=== PATIENT | male | born 1975 | race Caucasian/White ===

== ENCOUNTER → 2017-06-18 | Outpatient (CLI) | payer MEDICARE, OTHER ==
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
== END | disposition home or self-care (01) ==
LOC: RADCTMAIN 10:13
PROVIDERS: ATTEND Urology
DX: R31.0 Gross hematuria (principal)
CPT/HCPCS: 74178; 74400; Q9967

== ENCOUNTER 2017-09-15 06:47 | Emergency (ER) | payer MEDICARE, OTHER ==
[2017-09-15 06:58] VITALS: BP 131/83
[2017-09-15 07:42] LABS: Appearance,Urine Clear (Clear); Bilirubin,Urine Negative (Negative); Blood,Urine Negative (Negative); Color,Urine Yellow; Glucose,Urine (UA) Negative (Negative); Ketones,Urine Negative (Negative); Leukocyte Esterase,Urine Negative (Negative); Nitrite,Urine Negative (Negative); PH, Urine 5.5 (5.0-8.0); Protein,Urine Negative (Negative); Specific Gravity,Urine 1.021 (1.001-1.035)
[2017-09-15] MEDS ORDERED: cefTRIAXone 250 MG VIAL IM STA (07:47)
[2017-09-15] MEDS ORDERED: AZITHROMYCIN 500 MG TAB PO STA (07:47)
--- NOTE | 2017-09-15 07:48 | ED ---
General Adult HPI - General Chief complaint: Urogenital Stated complaint: Possible STD Time Seen by Provider: 09/15/17 07:16 Source: patient, RN notes reviewed, old records reviewed Mode of arrival: wheelchair Limitations: no limitations - History of Present Illness Initial comments: 42-year-old male presenting with months to years of urethral discharge. He just recently found out that he was in contact with chlamydia. He believes he has been carrying this for years. States the discharge is white. Denies any penile lesions. He has had some testicular pain which is unchanged and has been evaluated by his primary care physician. Denies any other complaints. No rash. No fever or chills. No abdominal pain or pain with defecation. - Related Data Home Medications Medication Instructions Recorded Confirmed busPIRone HCl [Buspar] 10 mg PO BID 09/15/17 09/15/17 Allergies Allergy/AdvReac Type Severity Reaction Status Date / Time coconut Allergy Rash/Hives Verified 09/15/17 08:01 Review of Systems ROS Statement: Those systems with pertinent positive or pertinent negative responses have been documented in the HPI. ROS Other: All systems not noted in ROS Statement are negative. Past Medical History Additional Past Medical History / Comment(s): herniated discs History of Any Multi-Drug Resistant Organisms: None Reported Additional Past Surgical History / Comment(s): skin graft right hand Past Psychological History: Anxiety Smoking Status: Current every day smoker Past Alcohol Use History: Occasional Past Drug Use History: Marijuana General Exam Limitations: no limitations General appearance: alert, in no apparent distress Head exam: Present: atraumatic, normocephalic Eye exam: Present: normal appearance, PERRL, EOMI ENT exam: Present: normal exam Neck exam: Present: normal inspection. Absent: tenderness, meningismus Respiratory exam: Present: normal lung sounds bilaterally. Absent: respiratory distress Cardiovascular Exam: Present: regular rate, normal rhythm GI/Abdominal exam: Present: soft. Absent: distended, tenderness exam: Present: normal inspection. Absent: testicular tenderness, urethral discharge, scrotal swelling Extremities exam: Present: normal inspection, normal capillary refill. Absent: pedal edema Neurological exam: Present: alert, oriented X3, CN II-XII intact. Absent: motor sensory deficit Course Vital Signs 09/15/17 06:53 Temperature 97.9 F Pulse Rate 77 Respiratory 15 Rate Blood Pressure 131/83 O2 Sat by Pulse 98 Oximetry Medical Decision Making - Medical Decision Making 42-year-old male with concern for STDs. Urinalysis is obtained, there is no bladder infection or cystitis. Urine GC and chlamydia are pending. Patient prefers to be treated while awaiting for these results. He is given ceftriaxone and azithromycin in the emergency department. He is informed that he is not being tested or treated for other STDs, only GC and chlamydia. He will follow-up with his primary care physician. - Lab Data Lab Results 09/15/17 Range/Units 07:24 Urine Color Yellow Urine Appearance Clear (Clear) Urine pH 5.5 (5.0-8.0) Ur Specific [place] 1.021 (1.001-1.035) Urine Protein Negative (Negative) Urine Glucose (UA) Negative (Negative) Urine Ketones Negative (Negative) Urine Blood Negative (Negative) Urine Nitrite Negative (Negative) Urine Bilirubin Negative (Negative) Urine Urobilinogen 2.0 (<2.0) mg/dL Ur Leukocyte Esterase Negative (Negative) Disposition Clinical Impression: Urethritis Disposition: HOME SELF-CARE Condition: Good Instructions: Sexually Transmitted Diseases (ED), Safe Sex (ED) Is patient prescribed a controlled substance at d/c from ED?: No Referrals: Rafia Oconnell MD [Primary Care Provider] - 1-2 days Time of Disposition: 07:48
[2017-09-15 08:30] VITALS: PULSE 74; RESP 16; TEMP 98
[2017-09-15] MEDS ORDERED: LIDOCAINE 1% INJ 10MG/ML (20 ML MDV) SQ ONE (08:32)
[2017-09-16 14:16] LABS: C. trachomatis,PCR Negative (Neg,Equiv); Chlamydia trachomatis Source Urine
[2017-09-16 14:17] LABS: N. gonorrhoeae,PCR Negative (Neg,Equiv); Neisseria Source Urine
--- NOTE | 2017-09-19 09:44 | CDI ---
Documentation Clarification OP Dear Dayana Cruz PA-C Please do addendum to ED report that provides Need medical necessity for Lidocaine IM medication administration for visit. Thank you, [facility] If you have any questions, please contact [employer] [place] at [phone] [facility]
== END 2017-09-15 08:58 | disposition home or self-care (01) ==
LOC: EC 06:47
DX: N34.2 Other urethritis (principal); F41.9 Anxiety disorder, unspecified; F17.200 Nicotine dependence, unspecified, uncomplicated; Z91.018 Allergy to other foods; Z79.899 Other long term (current) drug therapy
CPT/HCPCS: 99284; 96372; 81003; 87491; 87591; J2001; J0696

== ENCOUNTER 2017-10-02 12:03 | Inpatient (IN) | payer MEDICAID, MEDICARE, OTHER ==
[2017-10-02] MEDS ORDERED: LORazepam 1 MG TAB PO STA (12:45)
[2017-10-02 13:18] LABS: Basophils % (A) 0 %; Eosinophils # (A) 0.1 k/uL (0-0.7); Eosinophils % (A) 0 %; HCT 48.5 % (39.0-53.0); HGB 16.4 gm/dL (13.0-17.5); Lymphocytes # (A) 0.8 k/uL (1.0-4.8); Lymphocytes % (A) 4 %; MCH 33.8 pg (25.0-35.0); MCHC 33.9 g/dL (31.0-37.0); MCV 99.7 fL (80.0-100.0); Mean Platelet Volume 6.9; Monocytes # (A) 1.4 k/uL (0-1.0); Monocytes % (A) 7 %; Neutrophils # (A) 16.6 k/uL (1.3-7.7); Neutrophils % (A) 88 %; Platelet Count 231 k/uL (150-450); RBC 4.86 m/uL (4.30-5.90); RDW 12.1 % (11.5-15.5); WBC 18.9 k/uL (3.8-10.6)
[2017-10-02 13:26] LABS: Calcium 10.1 mg/dL (8.4-10.2); Potassium 3.7 mmol/L (3.5-5.1)
--- NOTE | 2017-10-02 13:47 | XR ---
EXAMINATION TYPE: XR chest 2V DATE OF EXAM: 10/02/2017 COMPARISON: Prior chest 08/01/2015 HISTORY: Anxiety, pain TECHNIQUE: Frontal and lateral views of the chest are obtained. FINDINGS: There is no focal air space opacity, pleural effusion, or pneumothorax seen. The cardiac silhouette size is within normal limits. The osseous structures are intact. IMPRESSION: No acute cardiopulmonary process.
--- NOTE | 2017-10-02 13:48 | XR ---
AP pelvis HISTORY: Pain Single frontal view of the pelvis Bone mineralization, joint spaces and alignment are maintained. No fracture or dislocation. No pathol ogic calcification evident. IMPRESSION: Normal pelvis.
[2017-10-02 14:22] LABS: Amphetamine Screen,Urine Not Detected (NotDetected); Barbiturate Screen,Urine Not Detected (NotDetected); Benzodiazepines Screen,Urine Not Detected (NotDetected); Cocaine Screen,Urine Not Detected (NotDetected); Methadone Screen, Urine Not Detected (NotDetected); Opiate Screen,Urine Not Detected (NotDetected); Oxycodone Screen, Urine Not Detected (NotDetected); Phencyclidine Screen,Urine Not Detected (NotDetected); Tricyclic Antidepressant,Urine Not Detected (NotDetected); Urn Cannabinoid Scrn Detected (NotDetected)
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
[2017-10-02 15:20] LABS: Amorphous Sediment,Urine Few /hpf; Appearance,Urine Turbid (Clear); Bilirubin,Urine Negative (Negative); Blood,Urine Large (Negative); Color,Urine Light Red; Glucose,Urine (UA) Negative (Negative); Hyaline Casts,Urine 131 /lpf (0-2); Ketones,Urine 1+ (Negative); Leukocyte Esterase,Urine Negative (Negative); Mucus,Urine Many /hpf; Nitrite,Urine Negative (Negative); PH, Urine 5.5 (5.0-8.0); Protein,Urine 2+ (Negative); RBC,Urine 5 /hpf (0-5); Specific Gravity,Urine 1.017 (1.001-1.035); Squamous Epithelial Cell,Urine 10 /hpf (0-4); Urobilinogen,Urine <2.0 mg/dL (<2.0); WBC,Urine 13 /hpf (0-5)
[2017-10-02] MEDS ORDERED: MAG HYDROX/AL HYDROX/SIMETH 30 ML CUP PO PRN (16:47)
[2017-10-02] MEDS ORDERED: ZIPRASIDONE 20 MG VIAL IM STA (16:47)
[2017-10-02] MEDS ORDERED: LORazepam 1 MG TAB PO PRN (16:47)
[2017-10-02] MEDS ORDERED: ZIPRASIDONE 20 MG VIAL IM PRN (16:47)
[2017-10-02] MEDS ORDERED: MAGNESIUM HYDROXIDE 2,400 MG/10 ML CUP PO PRN (16:47)
[2017-10-02] MEDS ORDERED: ACETAMINOPHEN TAB 325 MG TAB PO PRN (16:47)
[2017-10-02] MEDS ORDERED: LORazepam 2 MG/ML INJ IM PRN (16:52)
[2017-10-02 18:45] VITALS: TEMP 98.9; BMI 24.2
[2017-10-02 20:58] VITALS: RESP 16
[2017-10-02] MEDS ORDERED: ZIPRASIDONE 20 MG CAP PO SCH (21:00)
[2017-10-02] MEDS ORDERED: ZIPRASIDONE 20 MG CAP PO ONE (22:00)
[2017-10-02 22:29] VITALS: BP 117/78; PULSE 112
[2017-10-03 01:30] LABS: Hemoglobin A1C 4.9 % (4.0-6.0)
[2017-10-03] MEDS ORDERED: LOSARTAN 25 MG TAB PO SCH (09:00)
[2017-10-03] MEDS ORDERED: NICOTINE 14MG/24HR PATCH TRANSDERM SCH (09:00)
== END 2017-10-02 23:26 | DRG 897 ==
LOC: EC 12:03 → 3MHU 16:27
PROVIDERS: ADMIT Psychiatry & Neurology Psychiatry; ATTEND Psychiatry & Neurology Psychiatry
DX: F15.959 Other stimulant use, unspecified with stimulant-induced psychotic disorder, unspecified (principal); L98.8 Other specified disorders of the skin and subcutaneous tissue; R00.0 Tachycardia, unspecified
CPT/HCPCS: 36415; 71046; 72170; 80048; 80306; 81001; 82075; 83036; 84484; 85025; 87040; 87086; 93005; 96372; 99285

== ENCOUNTER 2017-10-02 23:50 | Observation (INO) | payer MEDICARE, OTHER ==
[2017-10-03] MEDS: busPIRone HCl 10 MG TAB PO SCH ×3 (01:33→21:29)
[2017-10-03] MEDS: HEPARIN SODIUM,PORCINE 5,000 UNIT/ML 1 ML VIAL SQ SCH ×5 (01:34→23:09)
[2017-10-03] MEDS: tiZANidine 4 MG TAB PO SCH ×2 (01:37→21:29)
[2017-10-03 05:32] LABS: Anion Gap 11 mmol/L; Blood Urea Nitrogen 24 mg/dL (9-20); Calcium 9.5 mg/dL (8.4-10.2); Carbon Dioxide 22 mmol/L (22-30); Chloride 108 mmol/L (98-107); Glucose 113 mg/dL (74-99); Potassium 3.8 mmol/L (3.5-5.1); Sodium 141 mmol/L (137-145)
[2017-10-03 05:47] LABS: Basophils % (A) 0 %; Eosinophils # (A) 0.2 k/uL (0-0.7); Eosinophils % (A) 2 %; HCT 42.9 % (39.0-53.0); HGB 14.7 gm/dL (13.0-17.5); Lymphocytes # (A) 1.5 k/uL (1.0-4.8); Lymphocytes % (A) 12 %; MCH 34.2 pg (25.0-35.0); MCHC 34.3 g/dL (31.0-37.0); MCV 99.7 fL (80.0-100.0); Mean Platelet Volume 7.9; Monocytes % (A) 8 %; Neutrophils # (A) 9.6 k/uL (1.3-7.7); Neutrophils % (A) 77 %; Platelet Count 199 k/uL (150-450); RDW 12.1 % (11.5-15.5); WBC 12.4 k/uL (3.8-10.6)
[2017-10-03 06:53] VITALS: BMI 24.2
[2017-10-03] MEDS: LOSARTAN 25 MG TAB PO SCH (09:05)
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
--- NOTE | 2017-10-03 11:10 | ECHOF ---
Referral Reason:abn trop MEASUREMENTS -------- HEIGHT: 170.2 cm WEIGHT: 69.9 kg BP: RVIDd: 2.5 cm (< 3.3) IVSd: 0.9 cm (0.6 - 1.1) LVIDd: 4.6 cm (3.9 - 5.3) LVPWd: 1.1 cm (0.6 - 1.1) IVSs: 1.4 cm LVIDs: 3.3 cm LVPWs: 1.1 cm LA Diam: 2.8 cm (2.7 - 3.8) Ao Diam: 3.7 cm (2.0 - 3.7) AV Cusp: 2.0 cm (1.5 - 2.6) LA Diam: 2.8 cm (2.7 - 3.8) MV EXCURSION: 22.213 mm (> 18.000) MV EF SLOPE: 153 mm/s (70 - 150) EPSS: 0.6 cm MV E Albert: 0.57 m/s MV DecT: 263 ms MV A Albert: 0.52 m/s MV E/A Ratio: 1.09 RAP: 5.00 mmHg RVSP: 29.84 mmHg FINDINGS -------- Sinus rhythm. This was a technically adequate study. LV size, wall thickness and systolic function are normal, with an EF greater than 55%. The right ventricle is normal in size. The left atrial size is normal. The right atrial size is normal. There is mild aortic valve sclerosis. There is no evidence of aortic regurgitation. Mild mitral annular calcification present. Mild mitral regurgitation is present. Mild tricuspid regurgitation present. There is no evidence of pulmonary hypertension. The right v entricular systolic pressure, as measured by Doppler, is 29.84mmHg. There is no pulmonic regurgitation present. The aortic root size is normal. There is no pericardial effusion. CONCLUSIONS -------- 1. LV size, wall thickness and systolic function are normal, with an EF greater than 55%. 2. The right ventricle is normal in size. 3. The left atrial size is normal. 4. The right atrial size is normal. 5. There is mild aortic valve sclerosis. 6. Mild mitral annular calcification present. 7. Mild mitral regurgitation is present. 8. Mild tricuspid regurgitation present. 9. There is no evidence of pulmonary hypertension. 10. The right ventricular systolic pressure, as measured by Doppler, is 29.84mmHg. 11. There is no pulmonic regurgitation present. 12. The aortic root size is normal. 13. There is no pericardial effusion. SET O TYPE OPERATOR: Myrna Oconnell RDCS
--- NOTE | 2017-10-03 12:27 | P.HPIM ---
History of Present Illness 42-year-old admitted to psychiatric floor because of that to others. Patient was later transferred to medical floor because of mildly elevated troponin of 0.06 which has come down to 0.04. Patient the was apparently having minimal chest pain in the epigastric area which is a burning sensation nonradiating and not associated diaphoresis yesterday. Patient was using methamphetamine and marijuana before admission. Patient was evaluated by cardiology patient doesn' t have any chest pain at this time patient does have leukocytosis without any fever or chills. EKG was obtain echocardiogram was obtained without any significant abnormality patient was cleared to go back to psychiatric floor and no further intervention is necessary and this doesn't appear like cardiac pain and troponin elevation is secondary to methamphetamine use patient's epigastric pain is secondary to gastritis. Review of Systems REVIEW OF SYSTEMS: CONSTITUTIONAL: No fever, no malaise, no fatigue. HEENT: No recent visual problems or hearing problems. Denied any sore throat. CARDIOVASCULAR: No orthopnea, PND, no palpitations, no syncope. PULMONARY: No shortness of breath, no cough, no hemoptysis. GASTROINTESTINAL: No diarrhea, no nausea, no vomiting, Normoactive bowel sounds. NEUROLOGICAL: No headaches, no weakness, no numbness. HEMATOLOGICAL: Denies any bleeding or petechiae. GENITOURINARY: Denies any burning micturition, frequency, or urgency. MUSCULOSKELETAL/RHEUMATOLOGICAL: Denies any joint pain, swelling, or any muscle pain. ENDOCRINE: Denies any polyuria or polydipsia. The rest of the 14-point review of systems is negative. Past Medical History Past Medical History: Hypertension Additional Past Medical History / Comment(s): herniated discs History of Any Multi-Drug Resistant Organisms: None Reported Additional Past Surgical History / Comment(s): skin graft right hand Past Psychological History: Anxiety Smoking Status: Former smoker Past Alcohol Use History: Occasional Past Drug Use History: Marijuana Medications and Allergies Home Medications Medication Instructions Recorded Confirmed Type busPIRone HCl [Buspar] 10 mg PO BID 09/15/17 10/03/17 History Losartan [Cozaar] 25 mg PO DAILY 10/02/17 10/03/17 History tiZANidine [Zanaflex] 4 mg PO HS 10/02/17 10/03/17 History Albuterol Inhaler [Ventolin Hfa 1 - 2 puff INHALATION Q6HR PRN #1 10/03/17 Rx Inhaler] inhaler Omeprazole [PriLOSEC] 40 mg PO AC-[id number] #14 capsule. 10/03/17 Rx Allergies Allergy/AdvReac Type Severity Reaction Status Date / Time coconut Allergy Rash/Hives Verified 10/02/17 17:25 Physical Exam Vitals: Vital Signs Temp Pulse Resp BP Pulse Ox 10/03/17 04:00 98.6 F 105 H 17 115/70 97 10/03/17 00:00 98.5 F 105 H 17 130/72 97 Intake and Output 10/02/17 10/03/17 10/03/17 22:59 06:59 14:59 Intake Total 400 240 Balance 400 240 Intake: Oral 400 240 Other: Voiding Method Toilet # Voids 1 2 # Bowel Movements 0 Weight 70.1 kg PHYSICAL EXAMINATION: GENERAL: The patient is alert and oriented x3, not in any acute distress. Well developed, well nourished. HEENT: Pupils are round and equally reacting to light. EOMI. No scleral icterus. No conjunctival pallor. Normocephalic, atraumatic. No pharyngeal erythema. No thyromegaly. CARDIOVASCULAR: S1 and S2 present. No murmurs, rubs, or gallops. PULMONARY: Minimal expiratory wheezing was appreciated good air entry into bilateral lung mcconnell ABDOMEN: Soft, nontender, nondistended, normoactive bowel sounds. No palpable organomegaly. MUSCULOSKELETAL: No joint swelling or deformity. EXTREMITIES: No cyanosis, clubbing, or pedal edema. NEUROLOGICAL: Gross neurological examination did not reveal any focal deficits. SKIN: No rashes. Results CBC & Chem 7: 10/03/17 03:00 10/03/17 03:00 Labs: Abnormal Lab Results - Last 24 Hours (Table) 10/03/17 10/03/17 10/03/17 Range/Units 02:49 03:00 03:00 WBC 12.4 H (3.8-10.6) k/uL Neutrophils # 9.6 H (1.3-7.7) k/uL Chloride 108 H (98-107) mmol/L BUN 24 H (9-20) mg/dL Glucose 113 H (74-99) mg/dL Troponin I 0.063 H* (0.000-0.034) ng/mL 10/03/17 Range/Units 09:08 WBC (3.8-10.6) k/uL Neutrophils # (1.3-7.7) k/uL Chloride (98-107) mmol/L BUN (9-20) mg/dL Glucose (74-99) mg/dL Troponin I 0.042 H* (0.000-0.034) ng/mL Thrombosis Risk Factor Assmnt - Choose All That Apply Each Factor Represents 1 point: Age 41-60 years Other Risk Factors: No Thrombosis Risk Factor Assessment Total Risk Factor Score: 1 Thrombosis Risk Factor Assessment Level: Low Risk Assessment and Plan Plan: -Minimally elevated troponins which is stable not high enough to say myocardial infarction, secondary to methamphetamine -Multiple drug abuse: Counseling was provided -Minimal expiratory wheezing patient will be given prescription for albuterol patient has to avoid smoking -Abdominal pain and epigastric secondary to gastritis or peptic ulcer disease patient will be given prescription for Prilosec -Psychiatric issues: Patient will be transferred to psychiatric floor
--- NOTE | 2017-10-03 12:28 | P.DS ---
Providers Date of admission: 10/02/17 23:50 Attending physician: Jonh Quinn Consults: 10/03/17 07:00 Consult Physician Routine Consulting Provider: Victorino Metcalf Consult Reason/Comments: pt delusional Do you want consulting provider notified?: Yes Placement Type Exists?: Yes Consult Physician Routine Consulting Provider: Froilan Watkins Consult Reason/Comments: elevated trops Do you want consulting provider notified?: Yes Placement Type Exists?: Yes 10/03/17 08:57 Consult Physician Routine Consulting Provider: Froilan Watkins Consult Reason/Comments: elevated troponin Do you want consulting provider notified?: Already Contacted Primary care physician: Rafia Oconnell [facility] Course: Please refer to my HPI Plan - Discharge Summary Discharge Rx Participant: No New Discharge Prescriptions: New Omeprazole [PriLOSEC] 40 mg PO AC-BRKFST #14 capsule. Albuterol Inhaler [Ventolin Hfa Inhaler] 1 - 2 puff INHALATION Q6HR PRN #1 inhaler PRN Reason: Shortness Of Breath Or Wheezing No Action busPIRone HCl [Buspar] 10 mg PO BID Losartan [Cozaar] 25 mg PO DAILY tiZANidine [Zanaflex] 4 mg PO HS Discharge Medication List busPIRone HCl [Buspar] 10 mg PO BID 09/15/17 [History] Losartan [Cozaar] 25 mg PO DAILY 10/02/17 [History] tiZANidine [Zanaflex] 4 mg PO HS 10/02/17 [History] Albuterol Inhaler [Ventolin Hfa Inhaler] 1 - 2 puff INHALATION Q6HR PRN #1 inhaler 10/03/17 [Rx] Omeprazole [PriLOSEC] 40 mg PO AC-BRKFST #14 capsule. 10/03/17 [Rx]
[2017-10-03 14:51] VITALS: RESP 18
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
[2017-10-04] MEDS ORDERED: ACETAMINOPHEN TAB 325 MG TAB PO PRN (07:58)
[2017-10-04] MEDS: busPIRone HCl 10 MG TAB PO SCH (08:16)
[2017-10-04] MEDS: LOSARTAN 25 MG TAB PO SCH (08:16)
[2017-10-04] MEDS: HEPARIN SODIUM,PORCINE 5,000 UNIT/ML 1 ML VIAL SQ SCH (08:18)
[2017-10-04 08:21] VITALS: BP 116/63; PULSE 85; TEMP 97
[2017-10-04] MEDS ORDERED: IBUPROFEN 400 MG TAB PO PRN (08:26)
--- NOTE | 2017-10-04 09:22 | P.PN ---
Subjective Progress Note Date: 10/04/17 Principal diagnosis: Chest discomfort This is a 42-year-old gentleman who was transferred from the psychiatric unit yesterday to the selective unit because of chest discomfort. The patient was found to have mildly abnormal cardiac enzymes. He was seen and evaluated by Dr. Burns felt that the chest discomfort is atypical. The patient underwent an EKG which showed sinus tachycardia. No ischemic ST or T-wave abnormalities noted. The echocardiogram revealed normal LV function without any significant valvular abnormalities. I did see the patient this morning. He denies having any chest pain or chest discomfort at this point. He is going to be transferred back to the psych unit. The patient does definitely need to have at least a stress test either as an inpatient or as an outpatient. Objective - Vital Signs Vital signs: Vital Signs Temp 97 F L 10/04/17 08:21 Pulse 85 10/04/17 08:21 Resp 18 10/04/17 08:21 BP 116/63 10/04/17 08:21 Pulse Ox 97 10/04/17 08:21 Intake & Output 10/03/17 10/04/17 10/04/17 18:59 06:59 18:59 Intake Total 720 240 Balance 720 240 Weight 70.8 kg Intake: Oral 720 240 Other: Voiding Method Toilet Toilet Toilet # Voids 1 2 # Bowel Movements 0 - Constitutional General appearance: Present: no acute distress - Respiratory Respiratory: bilateral: CTA - Cardiovascular Rhythm: regular Heart sounds: normal: S1, S2 - Labs CBC & Chem 7: 10/03/17 03:00 10/03/17 03:00 Labs: Abnormal Lab Results - Last 24 Hours (Table) 10/03/17 Range/Units 09:08 Troponin I 0.042 H* (0.000-0.034) ng/mL Assessment and Plan Assessment: Assessment #1 atypical chest discomfort #2 mildly abnormal cardiac enzymes Plan #1 the patient is chest pain-free #2 the EKG did not show any ischemic changes #3 the echocardiogram showed normal LV function #4 the patient definitely needs to have at least a stress test as an outpatient.
== END 2017-10-04 10:50 ==
LOC: INTOOBSV 23:50 → 6SEL 23:50
PROVIDERS: ADMIT Internal Medicine; ATTEND Internal Medicine
DX: R07.89 Other chest pain (principal); R77.8 Other specified abnormalities of plasma proteins; F23 Brief psychotic disorder; T43.621A Poisoning by amphetamines, accidental (unintentional), initial encounter; F12.90 Cannabis use, unspecified, uncomplicated; F15.90 Other stimulant use, unspecified, uncomplicated; K29.70 Gastritis, unspecified, without bleeding; I10 Essential (primary) hypertension; F41.9 Anxiety disorder, unspecified; R06.2 Wheezing; F31.9 Bipolar disorder, unspecified; Z79.899 Other long term (current) drug therapy; Z91.018 Allergy to other foods; Z87.891 Personal history of nicotine dependence
CPT/HCPCS: 96372; 93306; 80048; 84484; 85025; G0379; G0378 ×4; J1644

== ENCOUNTER 2017-10-04 10:30 | Inpatient (IN) | payer MEDICARE ==
[2017-10-04] MEDS ORDERED: MAG HYDROX/AL HYDROX/SIMETH 30 ML CUP PO PRN (11:44)
[2017-10-04] MEDS ORDERED: MAGNESIUM HYDROXIDE 2,400 MG/10 ML CUP PO PRN (11:44)
[2017-10-04] MEDS ORDERED: IBUPROFEN 400 MG TAB PO PRN (11:49)
[2017-10-04 12:03] VITALS: BMI 24.6
[2017-10-04] MEDS ORDERED: ALBUTEROL NEBULIZED 2.5 MG/3 ML INHALATION PRN (12:07)
[2017-10-04] MEDS: OLANZapine 10 MG TAB PO SCH ×2 (12:49→20:41)
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
--- NOTE | 2017-10-04 19:52 | XR ---
EXAMINATION TYPE: XR toes LT DATE OF EXAM: 10/04/2017 COMPARISON: NONE HISTORY: Left fifth toe pain. TECHNIQUE: 3 views of the left fifth toe were obtained. FINDINGS: There is mild soft tissue swelling of the lateral forefoot. No evidence of acute fracture o r dislocation is seen of the left fifth digit of the left foot. No suspicious osseous lesion. Osseous mineralization is within normal limits. IMPRESSION: No evidence of acute fracture or dislocation of the left fifth toe or visualized metatars al. Mild soft tissue swelling.
[2017-10-04] MEDS: tiZANidine 4 MG TAB PO SCH (20:41)
[2017-10-04] MEDS ORDERED: busPIRone HCl 10 MG TAB PO SCH (21:00)
[2017-10-05 08:16] LABS: Basophils # (A) 0.1 k/uL (0-0.2); Basophils % (A) 1 %; Eosinophils # (A) 0.6 k/uL (0-0.7); Eosinophils % (A) 9 %; HCT 45.5 % (39.0-53.0); HGB 15.2 gm/dL (13.0-17.5); Lymphocytes # (A) 1.5 k/uL (1.0-4.8); Lymphocytes % (A) 21 %; MCH 34.7 pg (25.0-35.0); MCHC 33.4 g/dL (31.0-37.0); MCV 103.8 fL (80.0-100.0); Macrocytosis Slight; Mean Platelet Volume 7.2; Monocytes # (A) 0.4 k/uL (0-1.0); Monocytes % (A) 5 %; Neutrophils # (A) 4.3 k/uL (1.3-7.7); Neutrophils % (A) 62 %; Platelet Count 202 k/uL (150-450); RBC 4.38 m/uL (4.30-5.90); RDW 12.3 % (11.5-15.5); WBC 6.9 k/uL (3.8-10.6)
[2017-10-05 08:28] LABS: Anion Gap 9 mmol/L; Blood Urea Nitrogen 17 mg/dL (9-20); Calcium 9.5 mg/dL (8.4-10.2); Carbon Dioxide 31 mmol/L (22-30); Chloride 102 mmol/L (98-107); Glucose 111 mg/dL (74-99); Potassium 4.6 mmol/L (3.5-5.1); Sodium 142 mmol/L (137-145)
[2017-10-05] MEDS: PANTOPRAZOLE 40 MG TABLET PO SCH (08:51)
[2017-10-05] MEDS: LOSARTAN 25 MG TAB PO SCH (08:51)
[2017-10-05] MEDS: OLANZapine 10 MG TAB PO SCH ×2 (08:51→20:41)
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
[2017-10-05] MEDS: tiZANidine 4 MG TAB PO SCH (20:41)
[2017-10-06] MEDS: PANTOPRAZOLE 40 MG TABLET PO SCH (08:52)
[2017-10-06] MEDS: OLANZapine 10 MG TAB PO SCH ×2 (08:52→21:52)
[2017-10-06] MEDS: LOSARTAN 25 MG TAB PO SCH (08:52)
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
[2017-10-06] MEDS: tiZANidine 4 MG TAB PO SCH (21:52)
[2017-10-07] MEDS: PANTOPRAZOLE 40 MG TABLET PO SCH (08:59)
[2017-10-07] MEDS: OLANZapine 10 MG TAB PO SCH ×2 (08:59→20:09)
[2017-10-07] MEDS: LOSARTAN 25 MG TAB PO SCH (08:59)
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
[2017-10-07] MEDS: tiZANidine 4 MG TAB PO SCH (20:09)
[2017-10-08] MEDS: OLANZapine 10 MG TAB PO SCH ×2 (08:27→20:27)
[2017-10-08] MEDS: PANTOPRAZOLE 40 MG TABLET PO SCH (08:27)
[2017-10-08] MEDS: LOSARTAN 25 MG TAB PO SCH (08:27)
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
[2017-10-08] MEDS: tiZANidine 4 MG TAB PO SCH (20:27)
[2017-10-09 06:43] VITALS: BP 108/57; PULSE 73; RESP 16; TEMP 97.8
[2017-10-09] MEDS: PANTOPRAZOLE 40 MG TABLET PO SCH (07:56)
[2017-10-09] MEDS: OLANZapine 10 MG TAB PO SCH (08:29)
[2017-10-09] MEDS: LOSARTAN 25 MG TAB PO SCH (08:29)
[2017-10-09] MEDS ORDERED: hydrOXYzine PAMOATE 25 MG CAP PO STA (11:26)
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
== END 2017-10-09 13:48 | disposition home or self-care (01) | DRG 897 ==
LOC: 3MHU 10:49
PROVIDERS: ADMIT Psychiatry & Neurology Psychiatry; ATTEND Psychiatry & Neurology Psychiatry
DX: F15.159 Other stimulant abuse with stimulant-induced psychotic disorder, unspecified (principal); I10 Essential (primary) hypertension; R06.02 Shortness of breath; F12.90 Cannabis use, unspecified, uncomplicated; Z72.89 Other problems related to lifestyle; Z91.018 Allergy to other foods; Z63.8 Other specified problems related to primary support group
CPT/HCPCS: 80048; 84443; 85025

== ENCOUNTER 2017-10-12 03:58 | Emergency (ER) | payer MEDICARE ==
[2017-10-12 04:05] VITALS: BP 164/91; PULSE 137; RESP 18; TEMP 98.4
== END 2017-10-12 04:30 ==
LOC: EC 03:58
DX: R44.0 Auditory hallucinations (principal)
CPT/HCPCS: 82075; 99499

== ENCOUNTER 2017-10-12 05:28 | Emergency (ER) | payer MEDICARE ==
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
[2017-10-12 08:38] VITALS: BP 147/94; PULSE 109; RESP 16; TEMP 98.4
== END 2017-10-12 09:39 | disposition home or self-care (01) ==
LOC: EC 05:28
DX: F43.20 Adjustment disorder, unspecified (principal); F41.9 Anxiety disorder, unspecified; R00.0 Tachycardia, unspecified; F17.200 Nicotine dependence, unspecified, uncomplicated; Z91.018 Allergy to other foods; Z63.5 Disruption of family by separation and divorce
CPT/HCPCS: 82075; 99284

== ENCOUNTER 2021-03-06 11:14 | Inpatient (IN) | payer MEDICAID, MEDICARE, OTHER ==
[2021-03-06] MEDS ORDERED: NITROGLYCERIN SL TABS 0.4 MG TAB SUBLINGUAL STA (12:02)
[2021-03-06] MEDS ORDERED: ASPIRIN 81 MG PO STA (12:02)
[2021-03-06] MEDS ORDERED: HEPARIN SODIUM 1,000 UN/ML (10ML VL) IV PRN (12:07)
[2021-03-06] MEDS ORDERED: HEPARIN SODIUM 1,000 UN/ML (10ML VL) IV ONE ×2 (12:07→12:45)
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
[2021-03-06] MEDS ORDERED: NALOXONE 0.4 MG/ML 1 ML VIAL IV PRN (12:13)
[2021-03-06] MEDS ORDERED: HEPARIN SOD,PORK IN 0.45% NACL 25,000 UNIT in 0.45% NACL 1 250ML.BAG IV SCH (12:15)
--- NOTE | 2021-03-06 12:16 | XR ---
EXAMINATION TYPE: XR chest 1V portable DATE OF EXAM: 03/06/2021 COMPARISON: 10/02/2017 HISTORY: Chest pain TECHNIQUE: Single frontal view of the chest is obtained. FINDINGS: There is right lower lobe infiltrate. Mild hyperinflation. Heart size normal. Coarsened in terstitium. No pneumothorax or pleural effusion on the left. Right lateral hemithorax not included. IMPRESSION: Right lower lobe infiltrate correlate clinically.
[2021-03-06 12:19] LABS: Basophils % (A) 0 %; Eosinophils # (A) 0.1 k/uL (0-0.7); Eosinophils % (A) 1 %; HCT 49.2 % (39.0-53.0); HGB 17.2 gm/dL (13.0-17.5); Lymphocytes # (A) 1.1 k/uL (1.0-4.8); Lymphocytes % (A) 7 %; MCH 35.4 pg (25.0-35.0); MCV 101.2 fL (80.0-100.0); Macrocytosis Slight; Monocytes # (A) 0.7 k/uL (0-1.0); Monocytes % (A) 4 %; Neutrophils # (A) 13.1 k/uL (1.3-7.7); Neutrophils % (A) 87 %; Platelet Count 230 k/uL (150-450); RBC 4.86 m/uL (4.30-5.90); RDW 13.3 % (11.5-15.5); WBC 15.1 k/uL (3.8-10.6)
[2021-03-06 12:20] LABS: Partial Thromboplastin Time 27.6 sec (22.0-30.0); Prothrombin Time 10.3 sec (9.0-12.0)
[2021-03-06 12:22] LABS: ALT 59 U/L (4-49); AST 376 U/L (17-59); African American GFR (CKD) >90 (>60 ml/min/1.73 sqM); Albumin 4.5 g/dL (3.5-5.0); Alkaline Phosphatase 117 U/L (38-126); Anion Gap 10 mmol/L; Blood Urea Nitrogen 14 mg/dL (9-20); Calcium 9.5 mg/dL (8.4-10.2); Carbon Dioxide 24 mmol/L (22-30); Chloride 104 mmol/L (98-107); Glucose 140 mg/dL (74-99); Non-African American GFR(CKD) >90 (>60 ml/min/1.73 sqM); Sodium 138 mmol/L (137-145); Total Bilirubin 1.2 mg/dL (0.2-1.3); Total Protein 7.4 g/dL (6.3-8.2)
[2021-03-06] MEDS ORDERED: MIDAZOLAM 2 MG/2 ML VIAL IV ONE ×2 (12:27→12:45)
[2021-03-06] MEDS ORDERED: ATORVASTATIN 80 MG TAB PO STA (12:27)
[2021-03-06] MEDS ORDERED: LIDOCAINE 1% INJ 10MG/ML (20 ML MDV) SQ ONE ×2 (12:27→12:47)
[2021-03-06] MEDS ORDERED: SODIUM CHLORIDE 0.9% 500 ML 500 ML IV ONE ×2 (12:45→12:49)
[2021-03-06] MEDS ORDERED: IOPAMIDOL-370 125ML BTL INJ ONE (12:56)
[2021-03-06] MEDS ORDERED: PRASUGREL 10 MG TAB PO ONE (13:30)
[2021-03-06] MEDS ORDERED: IOPAMIDOL-370 100ML BTL INJ ONE (13:31)
[2021-03-06] MEDS ORDERED: RX INFO: IV CONTRAST WAS GIVEN 1 EACH MISC MISCELLANE PRN (13:33)
[2021-03-06] MEDS ORDERED: MAG HYDROX/AL HYDROX/SIMETH 30 ML CUP PO PRN (13:33)
[2021-03-06] MEDS ORDERED: ZOLPIDEM 5 MG TAB PO PRN (13:33)
[2021-03-06] MEDS ORDERED: ATROPINE SULFATE 0.1 MG/ML 10ML SYRINGE IV PRN (13:33)
[2021-03-06] MEDS ORDERED: NITROGLYCERIN SL TABS 0.4 MG TAB SUBLINGUAL PRN (13:33)
--- NOTE | 2021-03-06 13:42 | P.CRDCN ---
History of Present Illness Consult date: 03/06/21 Chief complaint: Chest pain History of present illness: The patient is a 46-year-old gentleman with a past medical history significant for smoking and obesity and significant family history of CAD presented to the emergency department complaining of chest discomfort. He stated that the chest discomfort started 24 hours ago. He described it as a pressure in the middle of the chest without any radiation to the arms or neck or shoulders or back. He felt nauseated and he vomited. Because of chest discomfort get worse he presented to the emergency department where an EKG was performed and showed sinus rhythm with a QS pattern in the anteroseptal leads. Because of the ongoing chest discomfort an emergent heart catheterization was advised. The patient underwent an emergent heart catheterization and that revealed chronic total occlusion of the RCA which fills by bridging collateral from the left coronary system with occluded LAD by the osteotome. The right and left coronary systems are extremely calcified. The patient underwent successful stenting of the RCA with extremely calcified and complex lesion with a good angiographic r esults by the end with achieving KIMBERLY-3 flow. He was chest pain-free. His left-sided filling pressure were elevated at 35 mmHg. The procedure was performed from the right groin. Past Medical History Past Medical History: Hypertension Additional Past Medical History / Comment(s): herniated discs History of Any Multi-Drug Resistant Organisms: None Reported Additional Past Surgical History / Comment(s): skin graft right hand Past Anesthesia/Blood Transfusion Reactions: No Reported Reaction Past Psychological History: Anxiety Smoking Status: Current some day smoker Past Alcohol Use History: None Reported Past Drug Use History: None Reported Medications and Allergies Home Medications Medication Instructions Recorded Confirmed Type No Known Home Medications 03/06/21 03/06/21 History Allergies Allergy/AdvReac Type Severity Reaction Status Date / Time coconut Allergy Rash/Hives Verified 03/06/21 12:12 Physical Exam Vitals: Vital Signs Temp Pulse Resp BP Pulse Ox 03/06/21 12:12 87 18 124/97 97 03/06/21 12:10 18 124/78 03/06/21 12:00 99 18 128/87 97 03/06/21 11:54 97 18 129/88 97 03/06/21 11:50 98 129/88 03/06/21 11:45 101 H 03/06/21 11:31 98.0 F 98 22 123/86 98 Intake and Output 03/05/21 03/06/21 03/06/21 22:59 06:59 14:59 Intake Total 575 Balance 575 Intake: IV 575 Other: Weight 81.647 kg - Constitutional General appearance: no acute distress - Respiratory Respiratory: bilateral: diminished - Cardiovascular Rhythm: regular Heart sounds: normal: S1, S2 Results 03/06/21 12:04 03/06/21 12:04 Cardiac Enzymes 03/06/21 03/06/21 Range/Units 12:04 12:04 AST 376 H (17-59) U/L Troponin I 34.400 H* (0.000-0.034) ng/mL Coagulation 03/06/21 Range/Units 12:04 PT 10.3 (9.0-12.0) sec APTT 27.6 (22.0-30.0) sec CBC 03/06/21 Range/Units 12:04 WBC 15.1 H (3.8-10.6) k/uL RBC 4.86 (4.30-5.90) m/uL Hgb 17.2 (13.0-17.5) gm/dL Hct 49.2 (39.0-53.0) % Plt Count 230 (150-450) k/uL Comprehensive Metabolic Panel 03/06/21 Range/Units 12:04 Sodium 138 (137-145) mmol/L Potassium 4.0 (3.5-5.1) mmol/L Chloride 104 (98-107) mmol/L Carbon Dioxide 24 (22-30) mmol/L BUN 14 (9-20) mg/dL Creatinine 0.64 L (0.66-1.25) mg/dL Glucose 140 H (74-99) mg/dL Calcium 9.5 (8.4-10.2) mg/dL AST 376 H (17-59) U/L ALT 59 H (4-49) U/L Alkaline Phosphatase 117 (38-126) U/L Total Protein 7.4 (6.3-8.2) g/dL Albumin 4.5 (3.5-5.0) g/dL Current Medications Generic Name Dose Route Start Last Admin Trade Name Freq PRN Reason Stop Dose Admin Al Hydroxide/Mg Hydroxide 30 ml 03/06/21 13:33 Mag Hydrox/Al Hydrox/Simeth 30 Ml Cup PO Q4HR PRN Heartburn Aspirin 81 mg 03/07/21 09:00 Aspirin 81 Mg PO DAILY [facility] Atorvastatin Calcium 80 mg 03/06/21 21:00 Atorvastatin 80 Mg Tab PO HS [facility] Atropine Sulfate 0.5 mg 03/06/21 13:33 Atropine Sulfate 0.1 Mg/Ml 10ml Syringe IV ONCE PRN Symptomatic Bradycardia Heparin Sodium (Porcine) 0 unit 03/06/21 12:07 Heparin Sodium 1,000 Un/Ml (10ml Vl) IV 04/05/21 12:08 PER PROTOCOL PRN Low PTT Protocol Heparin Sodium/Sodium Chloride 250 mls @ 9.798 mls/hr 03/06/21 12:15 25,000 unit/ Sodium Chloride IV 04/05/21 12:16 .Q24H SAUL Protocol 12 UNITS/KG/HR Sodium Chloride 1,000 mls @ 75 mls/hr 03/06/21 13:45 Saline 0.9% IV 03/06/21 18:46 .[id number] [facility] Lisinopril 2.5 mg 03/07/21 09:00 Lisinopril 2.5 Mg Tab PO DAILY [facility] Metoprolol Tartrate 25 mg 03/06/21 21:00 Metoprolol Tartrate 25 Mg Tab PO BID [facility] Miscellaneous Information 1 each 03/06/21 13:33 Rx Info: Iv Contrast Was Given 1 Each Misc MISCELLANE 03/08/21 13:33 DAILY PRN Per Protocol Naloxone HCl 0.2 mg 03/06/21 12:13 Naloxone 0.4 Mg/Ml 1 Ml Vial IV 04/05/21 12:14 Q2M PRN Opioid Reversal Nitroglycerin 0.4 mg 03/06/21 13:33 Nitroglycerin Sl Tabs 0.4 Mg Tab SUBLINGUAL Q5M PRN Chest Pain Prasugrel 10 mg 03/07/21 09:00 Prasugrel 10 Mg Tab PO DAILY [facility] Zolpidem Tartrate 5 mg 03/06/21 13:33 Zolpidem 5 Mg Tab PO HS PRN Insomnia Intake and Output 03/05/21 03/06/21 03/06/21 22:59 06:59 14:59 Intake Total 575 Balance 575 Intake: IV 575 Other: Weight 81.647 kg Patient Weight 03/07/21 06:59 Weight 81.647 kg 03/06/21 12:04 03/06/21 12:04 Assessment and Plan Assessment: Assessment #1 acute/subacute ST elevation myocardial infarction #2 significant history of smoking #3 significant family history of CAD #4 obesity Plan #1 the patient underwent stenting of the LAD #2 dual antiplatelet #3 aggressive cholesterol control #4 risk factors modification #5 an echocardiogram was Doppler #6 standard groin care
[2021-03-06] MEDS ORDERED: SODIUM CHLORIDE 0.9% 1,000 ML IV SCH (13:45)
--- NOTE | 2021-03-06 14:38 | CC ---
CARDIAC CATHETERIZATION REPORT CARDIAC CATHETERIZATION AND PERCUTANEOUS CORONARY INTERVENTION: DATE OF SERVICE: 03/06/2021 PERFORMING PHYSICIAN: [place] Green M.D. PROCEDURES PERFORMED: 1. Selective right and left coronary angiogram. 2. Successful stenting of the proximal left anterior descending artery using a 3.5 x 23 mm Xience drug-eluting stent with an excellent angiographic result and reduction of stenosis from 100% to 0%. 3. Aspiration thrombectomy from the left anterior descending artery. 4. Left heart catheterization. 5. Right common femoral artery angiogram. INDICATION: This is a 46-year-old gentleman with a history of smoking and a significant family history of coronary artery disease who presented to the emergency department with chest discomfort and was diagnosed with acute anterior ST-elevation myocardial infarction. APPROACH: Right common femoral artery. COMPLICATIONS: None. LEVEL OF SEDATION: Moderate, with sedation length of 56 minutes. PROCEDURE DESCRIPTION: After obtaining informed consent, the patient was brought to the cardiac sanitation laborer. The right common femoral artery was cannulated using micropuncture technique. The micropuncture wire passed easily. Then I placed a 6-Palestinian sheath at the right common femoral artery. Selective right and left coronary angiogram was performed with JR4 diagnostic catheter and JL4 guiding catheter. After that I did intervene on the LAD. Please see separate paragraph for that. After that I did left heart catheterization using 5-Palestinian pigtail catheter. Then I did selective right common femoral artery angiogram. The procedure was completed without any complication. SELECTIVE CORONARY ANGIOGRAM: 1. The RCA is a large-caliber vessel and it is a dominant vessel. The RCA is chronically occluded and fills by bridging collateral from the left coronary system. 2. The left main is large and has mild disease only. It bifurcates into left circumflex which is a nondominant vessel and LAD. 3. The left circumflex is a large-caliber vessel. It is a nondominant vessel. The left circumflex proximally is angiographically normal and gives rise to a large OM branch which appeared to be normal. The circumflex in the mid and distal portions appeared to be angiographically normal. Bridging collaterals from the left to the right identified. 4. The LAD is stumped by the ostium from the left main coronary artery. PERCUTANEOUS CORONARY INTERVENTION OF LEFT ANTERIOR DESCENDING ARTERY CORONARY ARTERY: Anticoagulation was initiated using heparin with continuous ACT monitoring throughout the case. I did engage the left main using JL4 guiding catheter. Attempting to wire the LAD using a run-through wire was unsuccessful. Finally I was able to wire it using a Whisper wire. After that I did advance the run-through wire to follow the Whisper, then I pulled the Whisper wire out and I kept the run-through wire in. Balloon angioplasty was initially performed using a 2.5 x 15 mm balloon. After that I did aspiration thrombectomy from the left anterior descending artery. Attempting to advice a 3.5 x 23 mm Xience was unsuccessful. Balloon angioplasty again was performed using a 3.0 x 15 mm balloon, and after that attempting to advance the stent was unsuccessful. After that, again a balloon again, using this time a 3.5 mm NC balloon with multiple PTCA ballooning by the ostium and proximal LAD. With that I was able to advance the 3.5 x 23 mm Xience PERLA where the stent was positioned under fluoroscopic guidance and deployed under its nominal pressure. Please note that the stent was advanced with adjunctive use GuideLiner. The final angiogram showed excellent angiographic results and the procedure was completed without any complication. HEMODYNAMICS: The LVEDP was 30 mmHg without significant gradient across the aortic valve. CONCLUSION: 1. Acute ST-elevation myocardial infarction in this 46-year-old gentleman with history of smoking and significant family history of CAD. 2. Chronic total occlusion of the right coronary artery which fills by bridging collaterals from the left coronary system. 3. Acute total occlusion of the proximal left anterior descending artery with a hard calcified lesion. 4. Successful stenting of a complex lesion in the ostium/proximal LAD with an excellent angiographic result and rastafari of KIMBERLY-3 flow. 5. Elevated left-sided filling pressure. POST-PROCEDURE MANAGEMENT: 1. Dual anti-platelet therapy. 2. Aggressive cholesterol control. 3. Risk factor modifications. 4. Follow up with the patient. MMODL / IJN: [id number] /
[2021-03-06 17:02] LABS: Glucose,Whole Blood 121 mg/dL (75-99)
[2021-03-06] MEDS: METOPROLOL TARTRATE 25 MG TAB PO SCH (21:22)
[2021-03-06] MEDS: ATORVASTATIN 80 MG TAB PO SCH (21:22)
[2021-03-07 07:01] LABS: Basophils % (A) 0 %; Eosinophils # (A) 0.1 k/uL (0-0.7); Eosinophils % (A) 1 %; HCT 46.3 % (39.0-53.0); HGB 15.8 gm/dL (13.0-17.5); Lymphocytes # (A) 1.8 k/uL (1.0-4.8); Lymphocytes % (A) 16 %; MCH 35.1 pg (25.0-35.0); MCHC 34.1 g/dL (31.0-37.0); MCV 103.2 fL (80.0-100.0); Macrocytosis Slight; Mean Platelet Volume 8.1; Monocytes # (A) 0.9 k/uL (0-1.0); Monocytes % (A) 7 %; Neutrophils # (A) 8.8 k/uL (1.3-7.7); Neutrophils % (A) 75 %; Platelet Count 203 k/uL (150-450); RBC 4.49 m/uL (4.30-5.90); RDW 12.3 % (11.5-15.5); WBC 11.8 k/uL (3.8-10.6)
[2021-03-07 07:12] LABS: African American GFR (CKD) >90 (>60 ml/min/1.73 sqM); Anion Gap 6 mmol/L; Blood Urea Nitrogen 15 mg/dL (9-20); Calcium 8.8 mg/dL (8.4-10.2); Carbon Dioxide 22 mmol/L (22-30); Chloride 108 mmol/L (98-107); Glucose 109 mg/dL (74-99); Non-African American GFR(CKD) >90 (>60 ml/min/1.73 sqM); Potassium 3.8 mmol/L (3.5-5.1); Sodium 136 mmol/L (137-145)
[2021-03-07] MEDS: PRASUGREL 10 MG TAB PO SCH (08:27)
[2021-03-07] MEDS: METOPROLOL TARTRATE 25 MG TAB PO SCH ×2 (08:27→20:25)
[2021-03-07] MEDS: ASPIRIN 81 MG PO SCH (08:27)
--- NOTE | 2021-03-07 10:00 | ECHOF ---
Referral Reason:STEMI MEASUREMENTS -------- HEIGHT: 172.7 cm WEIGHT: 81.7 kg BP: IVSd: 1.1 cm (0.6 - 1.1) LVIDd: 4.7 cm (3.9 - 5.3) LVPWd: 0.7 cm (0.6 - 1.1) EDV(Teich): 102 ml IVSs: 1.3 cm LVIDs: 4.1 cm LVPWs: 1.0 cm %IVS Thck: 15 % ESV(Teich): 76 ml EF(Teich): 25 % %FS: 12 % SV(Teich): 26 ml LVLd A4C: 7.5 cm LVEDV MOD A4C: 87 ml LVLs A4C: 7.2 cm LVESV MOD A4C: 57 ml LVEF MOD A4C: 35 % SV MOD A4C: 30 ml LALs A4C: 5.7 cm LAAs A4C: 18.2 cm LAESV A-L A4C: 49 ml LAESV MOD A4C: 48 ml LALs A2C: 4.6 cm LAAs A2C: 14.4 cm LAESV A-L A2C: 38 ml LAESV MOD A2C: 36 ml LAESV(A-L): 48 ml LAESV Index (A-L): 24.57 ml/m Ao Diam: 3.2 cm (2.0 - 3.7) LA Diam: 3.0 cm (2.7 - 3.8) AV Cusp: 2.3 cm (1.5 - 2.6) EPSS: 2.2 cm MV E Albert: 0.85 m/s MV DecT: 146 ms MV Dec [place]: 5.8 m/s MV A Albert: 0.78 m/s MV E/A Ratio: 1.09 MV PHT: 42 ms MR Vmax: 1.44 m/s MR maxP.29 mmHg AV Vmax: 0.77 m/s AV maxP.35 mmHg TR Vmax: 1.19 m/s TR maxP.65 mmHg RAP: 5.00 mmHg RVSP: 10.65 mmHg MV EF SLOPE: 229.36 mm/s (70 - 150) MV EXCURSION: 20.65 mm (> 18.000) FINDINGS -------- This was a technically good study. The left ventricular size is normal. Left ventricular wall thickness is normal. Overall left vent ricular systolic function is moderate-severely impaired with, an EF between 30 - 35 %. Normal LAP. Grade 1 Diastolic Dysfunction. Basal anteroseptal LV wall motion is hypokinetic. Mid anterosepta l LV wall motion is hypokinetic. Apical anterior LV wall motion is hypokinetic. Apical lateral LV wall motion is hypokinetic. Apical inferior LV wall motion is hypokinetic. Apical septum LV wall motion is hypokinetic. The right ventricle is normal in size. The left atrial size is normal. Normal LA size by volume 22+/-6 ml/m2. The right atrial size is normal. The aortic valve is trileaflet and appears structurally normal. The mitral valve is normal. There is trace mitral regurgitation. The tricuspid valve appears structurally normal. Trace tricuspid regurgitation present. Right elliot tricular systolic pressure is normal at < 35 mmHg. There is no pulmonic regurgitation present. The aortic root size is normal. IVC Not well visulized. There is no pericardial effusion. CONCLUSIONS -------- 1. The left ventricular size is normal. 2. Left ventricular wall thickness is normal. 3. Overall left ventricular systolic function is moderate-severely impaired with, an EF between 30 - 35 %. 4. Normal LAP. Grade 1 Diastolic Dysfunction. 5. Basal anteroseptal LV wall motion is hypokinetic. 6. Mid anteroseptal LV wall motion is hypokinetic. 7. Apical anterior LV wall motion is hypokinetic. 8. Apical lateral LV wall motion is hypokinetic. 9. Apical inferior LV wall motion is hypokinetic. 10. Apical septum LV wall motion is hypokinetic. 11. There is trace mitral regurgitation. 12. Trace tricuspid regurgitation present. 13. There is no pericardial effusion. AUTOMOTIVE SERVICES MANAGER: Tierra Briseno RDCS
--- NOTE | 2021-03-07 10:46 | P.PN ---
Subjective Progress Note Date: 03/07/21 HISTORY OF PRESENT ILLNESS: The patient is a 46-year-old gentleman with a past medical history significant for smoking and obesity and significant family history of CAD presented to the emergency department complaining of chest discomfort. He stated that the chest discomfort started 24 hours ago. He described it as a pressure in the middle of the chest without any radiation to the arms or neck or shoulders or back. He felt nauseated and he vomited. Because of chest discomfort get worse he presented to the emergency department where an EKG was performed and showed sinus rhythm with a QS pattern in the anteroseptal leads. Because of the ongoing chest discomfort an emergent heart catheterization was advised. The patient underwent an emergent heart catheterization and that revealed chronic total occlusion of the RCA which fills by bridging collateral from the left co ronary system with occluded LAD by the osteotome. The right and left coronary systems are extremely calcified. The patient underwent successful stenting of the RCA with extremely calcified and complex lesion with a good angiographic results by the end with achieving KIMBERLY-3 flow. He was chest pain-free. His left-sided filling pressure were elevated at 35 mmHg. The procedure was performed from the right groin. 03/07/2021 Patient examined this morning at the bedside. He is status post cardiac catheterization with PCI to the LAD. Patient's right groin is soft with no hematoma noted. Patient reports some mild chest discomfort morning but states it is significantly improved from yesterday. He denies shortness of breath. Echocardiogram completed revealing ejection fraction 30-35%, basal anterior septal, mid anterior septal, apical anterior, apical lateral, apical inferior, and apical septal LV wall hypokinesis, trace mitral regurgitation, and trace tricuspid regurgitation PHYSICAL EXAM: VITAL SIGNS: Reviewed. GENERAL: Well-developed in no acute distress. NECK: Supple. No JVD or thyromegaly LUNGS: Respirations even and unlabored. Lungs essentially clear to auscultation bilaterally. HEART: Regular rate and rhythm. S1 and S2 heard. EXTREMITIES: Normal range of motion. No clubbing or cyanosis. Peripheral pulses intact. No lower extremity edema. Right groin soft with no hematoma noted ASSESSMENT: Acute/subacute STEMI Ischemic cardiomyopathy Nicotine dependence Family history of coronary artery disease PLAN: Continue current cardiac medications Continue dual antiplatelet therapy with aspirin and Effient Smoking cessation encouraged Anticipate discharge in the next 24-48 hours Further recommendations pending patient's course Patient to follow up outpatient with Dr. Green Nurse practitioner note has been reviewed by physician. Signing provider agrees with the documented findings, assessment, and plan of care. Objective - Vital Signs Vital signs: Vital Signs Temp 98.0 F 03/07/21 08:00 Pulse 100 03/07/21 08:00 Resp 18 03/07/21 08:00 BP 107/68 03/07/21 08:00 Pulse Ox 98 03/07/21 03:40 Intake & Output 03/06/21 03/07/21 03/07/21 18:59 06:59 18:59 Intake Total 725 40 120 Output Total 450 200 Balance 275 -160 120 Weight 81.647 kg Intake: IV 725 40 Invasive Line 1 10 Sodium Chloride 0.9% 1, 150 30 000 ml @ 75 mls/hr IV . [id number] [facility] Rx#:[id number] Oral 120 Output: Urine 450 200 Other: Voiding Method Urinal Urinal # Voids 1 - Labs CBC & Chem 7: 03/07/21 06:31 03/07/21 06:31 Labs: Abnormal Lab Results - Last 24 Hours (Table) 03/06/21 03/06/21 03/06/21 Range/Units 12:04 12:04 12:04 WBC 15.1 H (3.8-10.6) k/uL MCV 101.2 H (80.0-100.0) fL MCH 35.4 H (25.0-35.0) pg Neutrophils # 13.1 H (1.3-7.7) k/uL Sodium (137-145) mmol/L Chloride (98-107) mmol/L Creatinine 0.64 L (0.66-1.25) mg/dL Glucose 140 H (74-99) mg/dL POC Glucose (mg/dL) (75-99) mg/dL AST 376 H (17-59) U/L ALT 59 H (4-49) U/L Troponin I 34.400 H* (0.000-0.034) ng/mL 03/06/21 03/07/21 03/07/21 Range/Units 17:00 06:31 06:31 WBC 11.8 H (3.8-10.6) k/uL MCV 103.2 H (80.0-100.0) fL MCH 35.1 H (25.0-35.0) pg Neutrophils # 8.8 H (1.3-7.7) k/uL Sodium 136 L (137-145) mmol/L Chloride 108 H (98-107) mmol/L Creatinine (0.66-1.25) mg/dL Glucose 109 H (74-99) mg/dL POC Glucose (mg/dL) 121 H (75-99) mg/dL AST (17-59) U/L ALT (4-49) U/L Troponin I (0.000-0.034) ng/mL
[2021-03-07 13:09] VITALS: BMI 27.3
[2021-03-07] MEDS: ATORVASTATIN 80 MG TAB PO SCH (20:25)
--- NOTE | 2021-03-07 22:03 | P.HPIM ---
History of Present Illness H&P Date: 03/06/21 Chief Complaint: Chest pressure Patient is a 46-year-old male with a known history of hypertension presents to ER with complaints of chest pain. Patient states that he has been having chest pain, chest congestion since yesterday and went to primary care physician. While he was waiting at the PCPs office he began having severe pressure-like sensation in the substernal region. Patient felt like a heavy weight on his chest. EMS was called and patient was transferred to ER. He felt nauseated and vomited. EKG in the ER showed sinus rhythm with QRS pattern in the anteroseptal leads. Patient was taken to cardiac catheterization, which showed chronic total occlusion of the RCA which fills by bridging collateral from the left coronary system with occluded LAD by the osteotome. Right and left coronary systems are extremely calcified. Patient underwent successful stenting of the RCA with extremely classified and complex lesion with good angiographic results by the end of the achieving KIMBERLY-3 flow. Left-sided filling pressures were elevated at 35 mmHg. Laboratory data showed WBC 15.1 hemoglobin 17.1 platelets 230 BUN 49 creatinine 0.64 AST 376 ALT 59 alk phos 117 Troponin 34.4 Coronavirus PCR not detected. Review of Systems Constitutional: Patient denies any fever or chills . No generalized weakness or weight loss. Abdomen: Patient denied nausea vomiting and diarrhea and abdominal pain. Cardiovascular: Patient denies any chest pain or short of breath no palpitations.Chest pressure on admission. Respiratory: patient denied any cough or sputum production. No shortness of breath Neurologic: Patient denied any numbness or tingling headache. Musculoskeletal: Patient denies any complaints of joint swelling or deformity. Skin: Negative Psychiatric: Negative Endocrine: No heat or cold intolerance. No recent weight gain. Genitourinary: No dysuria or hematuria. All other 14 point ROS negative except the above Past Medical History Past Medical History: Hypertension Additional Past Medical History / Comment(s): herniated discs History of Any Multi-Drug Resistant Organisms: None Reported Additional Past Surgical History / Comment(s): skin graft right hand Past Anesthesia/Blood Transfusion Reactions: No Reported Reaction Past Psychological History: Anxiety Smoking Status: Current some day smoker Past Alcohol Use History: None Reported Past Drug Use History: None Reported Medications and Allergies Home Medications Medication Instructions Recorded Confirmed Type Ibuprofen [Motrin] 800 mg PO Q8H PRN 03/07/21 03/07/21 History Losartan [Cozaar] 25 mg PO DAILY 03/07/21 03/07/21 History Allergies Allergy/AdvReac Type Severity Reaction Status Date / Time coconut Allergy Rash/Hives Verified 03/06/21 12:12 Physical Exam Vitals: Vital Signs Temp Pulse Resp BP Pulse Ox 03/06/21 12:12 87 18 124/97 97 03/06/21 12:10 18 124/78 03/06/21 12:00 99 18 128/87 97 03/06/21 11:54 97 18 129/88 97 03/06/21 11:50 98 129/88 03/06/21 11:45 101 H 03/06/21 11:31 98.0 F 98 22 123/86 98 Intake and Output 03/05/21 03/06/21 03/06/21 22:59 06:59 14:59 Intake Total 575 Balance 575 Intake: IV 575 Other: Weight 81.647 kg PHYSICAL EXAMINATION: Patient is lying in the bed comfortably, no acute distress, awake alert and oriented.. HEENT: Normocephalic. Neck is supple. Pupils reactive. Nostrils clear. Oral cavity is moist. Neck reveals no JVD, carotid bruits, or thyromegaly. CHEST EXAMINATION: Trachea is central. Symmetrical expansion. Lung mcconnell clear to auscultation and percussion. CARDIAC: Normal S1, S2 with no gallops. No murmurs ABDOMEN: Soft. Bowel sounds normal. No organomegaly. No abdominal bruits. Extremities: reveal no edema. No clubbing or cyanosis Neurologically awake, alert, oriented x3 with well-coordinated movements. No focal deficits noted Skin: No rash or skin lesions. Psychiatric: Cooperative. Nonsuicidal Musculoskeletal: No joint swelling or deformity. Normal range of motion. Results CBC & Chem 7: 03/07/21 06:31 03/07/21 06:31 Labs: Abnormal Lab Results - Last 24 Hours (Table) 03/06/21 03/06/21 03/06/21 Range/Units 12:04 12:04 12:04 WBC 15.1 H (3.8-10.6) k/uL MCV 101.2 H (80.0-100.0) fL MCH 35.4 H (25.0-35.0) pg Neutrophils # 13.1 H (1.3-7.7) k/uL Creatinine 0.64 L (0.66-1.25) mg/dL Glucose 140 H (74-99) mg/dL AST 376 H (17-59) U/L ALT 59 H (4-49) U/L Troponin I 34.400 H* (0.000-0.034) ng/mL Thrombosis Risk Factor Assmnt - DVT/VTE Prophylaxis DVT/VTE Prophylaxis: Pharmacologic Prophylaxis ordered Assessment and Plan Assessment: Acute ST elevated MA status post cardiac catheterization and stent placement to RCA Hypertension Significant family history of coronary artery disease Currently some day smoker DVT prophylaxis. Plan: Patient is status post cardiac catheterization and stent placement to RCA. Patient will be continued on telemetry monitoring. Was initially started on heparin drip and currently discontinued. Continue with aspirin, Effient and metoprolol and lisinopril. Cardiology is on board. Continue to follow closely. Time with Patient: Greater than 30
--- NOTE | 2021-03-07 22:06 | P.PN ---
Subjective Progress Note Date: 03/07/21 Principal diagnosis: Acute ST elevated [place] status post cardiac catheterization and stent placement to RCA Patient is a 46-year-old male with a known history of hypertension presents to ER with complaints of chest pain. Patient states that he has been having chest pain, chest congestion since yesterday and went to primary care physician. While he was waiting at the PCPs office he began having severe pressure-like sensation in the substernal region. Patient felt like a heavy weight on his chest. EMS was called and patient was transferred to ER. He felt nauseated and vomited. EKG in the ER showed sinus rhythm with QRS pattern in the anteroseptal leads. Patient was taken to cardiac catheterization, which showed chronic total occlusion of the RCA which fills by bridging collateral from the left coronary system with occluded LAD by the osteotome. Right and left coronary systems are extremely calcified. Patient underwent successful stenting of the RCA with extremely classified and complex lesion with good angiographic results by the end of the achieving KIMBERLY-3 flow. Left-sided filling pressures were elevated at 35 mmHg. Laboratory data showed WBC 15.1 hemoglobin 17.1 platelets 230 BUN 49 creatinine 0.64 AST 376 ALT 59 alk phos 117 Troponin 34.4 Coronavirus PCR not detected. 03/07/2021 Patient is currently resting in the bed comfortably. No complaints of chest pain or shortness of breath. Patient has been afebrile. No nausea vomiting or abdominal pain or diarrhea. 2D echocardiogram showed ejection fraction 30 to 35%, basal anterior septal and mid anterior septal apical anterior apical lateral apical inferior and apical septal LV wall hypokinesis. Trace MR and trace TR. Patient is being current dual antiplatelet therapy and statins and metoprolol. Current medications reviewed. Objective - Vital Signs Vital signs: Vital Signs Temp 98.0 F 03/07/21 08:00 Pulse 97 03/07/21 16:00 Resp 18 03/07/21 14:00 BP 107/67 03/07/21 16:00 Pulse Ox 95 03/07/21 16:00 Intake & Output 03/07/21 03/07/21 03/08/21 06:59 18:59 06:59 Intake Total 40 120 Output Total 200 Balance -160 120 Weight 81.647 kg Intake: IV 40 Invasive Line 1 10 Sodium Chloride 0.9% 1, 30 000 ml @ 75 mls/hr IV . [id number] SAUL Rx#:[id number] Oral 120 Output: Urine 200 Other: Voiding Method Urinal Urinal # Voids 3 - Exam PHYSICAL EXAMINATION: Patient is lying in the bed comfortably, no acute distress, awake alert and oriented.. HEENT: Normocephalic. Neck is supple. Pupils reactive. Nostrils clear. Oral cavity is moist. Neck reveals no JVD, carotid bruits, or thyromegaly. CHEST EXAMINATION: Trachea is central. Symmetrical expansion. Lung mcconnell clear to auscultation and percussion. CARDIAC: Normal S1, S2 with no gallops. No murmurs ABDOMEN: Soft. Bowel sounds normal. No organomegaly. No abdominal bruits. Extremities: reveal no edema. No clubbing or cyanosis Neurologically awake, alert, oriented x3 with well-coordinated movements. No focal deficits noted Skin: No rash or skin lesions. Psychiatric: Cooperative. Nonsuicidal Musculoskeletal: No joint swelling or deformity. Normal range of motion. - Labs CBC & Chem 7: 03/07/21 06:31 03/07/21 06:31 Labs: Abnormal Lab Results - Last 24 Hours (Table) 03/07/21 03/07/21 Range/Units 06:31 06:31 WBC 11.8 H (3.8-10.6) k/uL MCV 103.2 H (80.0-100.0) fL MCH 35.1 H (25.0-35.0) pg Neutrophils # 8.8 H (1.3-7.7) k/uL Sodium 136 L (137-145) mmol/L Chloride 108 H (98-107) mmol/L Glucose 109 H (74-99) mg/dL Assessment and Plan Assessment: Acute ST elevated [place] status post cardiac catheterization and stent placement to RCA Ischemic cardiomyopathy ejection fraction 30 to 35%. 2D echo done on 03/06/2021. Elevated AST and ALT Hypertension Significant family history of coronary artery disease Currently some day smoker DVT prophylaxis. Plan: Patient is status post cardiac catheterization and stent placement to RCA. Patient will be continued on telemetry monitoring. Was initially started on heparin drip and currently discontinued. Continue with aspirin, Effient and metoprolol and lisinopril. Cardiology is on board. Continue to follow closely.
[2021-03-08 08:22] LABS: Basophils % (A) 0 %; Eosinophils # (A) 0.3 k/uL (0-0.7); Eosinophils % (A) 3 %; HCT 49.2 % (39.0-53.0); HGB 16.3 gm/dL (13.0-17.5); Lymphocytes # (A) 1.5 k/uL (1.0-4.8); Lymphocytes % (A) 15 %; MCHC 33.1 g/dL (31.0-37.0); MCV 105.7 fL (80.0-100.0); Macrocytosis Moderate; Mean Platelet Volume 8.1; Monocytes # (A) 0.6 k/uL (0-1.0); Monocytes % (A) 6 %; Neutrophils # (A) 7.4 k/uL (1.3-7.7); Neutrophils % (A) 74 %; Platelet Count 208 k/uL (150-450); RBC 4.65 m/uL (4.30-5.90); RDW 13.1 % (11.5-15.5); WBC 9.9 k/uL (3.8-10.6)
[2021-03-08] MEDS: SPIRONOLACTONE 25 MG TAB PO SCH (08:34)
[2021-03-08] MEDS: PRASUGREL 10 MG TAB PO SCH (08:34)
[2021-03-08] MEDS: ASPIRIN 81 MG PO SCH (08:34)
[2021-03-08] MEDS: METOPROLOL SUCCINATE (ER) 50 MG TAB.ER.24H PO SCH (08:34)
[2021-03-08 08:37] LABS: ALT 52 U/L (4-49); AST 109 U/L (17-59); African American GFR (CKD) >90 (>60 ml/min/1.73 sqM); Albumin 3.7 g/dL (3.5-5.0); Alkaline Phosphatase 102 U/L (38-126); Anion Gap 9 mmol/L; Blood Urea Nitrogen 16 mg/dL (9-20); Carbon Dioxide 20 mmol/L (22-30); Chloride 108 mmol/L (98-107); Glucose 110 mg/dL (74-99); Non-African American GFR(CKD) >90 (>60 ml/min/1.73 sqM); Potassium 3.7 mmol/L (3.5-5.1); Sodium 137 mmol/L (137-145); Total Protein 6.6 g/dL (6.3-8.2)
--- NOTE | 2021-03-08 12:04 | P.PN ---
Subjective Progress Note Date: 03/08/21 HISTORY OF PRESENT ILLNESS: The patient is a 46-year-old gentleman with a past medical history significant for smoking and obesity and significant family history of CAD presented to the emergency department complaining of chest discomfort. He stated that the chest discomfort started 24 hours ago. He described it as a pressure in the middle of the chest without any radiation to the arms or neck or shoulders or back. He felt nauseated and he vomited. Because of chest discomfort get worse he presented to the emergency department where an EKG was performed and showed sinus rhythm with a QS pattern in the anteroseptal leads. Because of the ongoing chest discomfort an emergent heart catheterization was advised. The patient underwent an emergent heart catheterization and that revealed chronic total occlusion of the RCA which fills by bridging collateral from the left co ronary system with occluded LAD by the osteotome. The right and left coronary systems are extremely calcified. The patient underwent successful stenting of the RCA with extremely calcified and complex lesion with a good angiographic results by the end with achieving KIMBERLY-3 flow. He was chest pain-free. His left-sided filling pressure were elevated at 35 mmHg. The procedure was performed from the right groin. 03/07/2021 Patient examined this morning at the bedside. He is status post cardiac catheterization with PCI to the LAD. Patient's right groin is soft with no hematoma noted. Patient reports some mild chest discomfort morning but states it is significantly improved from yesterday. He denies shortness of breath. Echocardiogram completed revealing ejection fraction 30-35%, basal anterior septal, mid anterior septal, apical anterior, apical lateral, apical inferior, and apical septal LV wall hypokinesis, trace mitral regurgitation, and trace tricuspid regurgitation 03/08/2021 Patient examined this morning at the bedside. Patient denies chest pain or pressure. He denies shortness of breath. Patient states he has been up ambulating a little bit in his room. Vital signs are stable. Telemetry reveals sinus mechanism. PHYSICAL EXAM: VITAL SIGNS: Reviewed. GENERAL: Well-developed in no acute distress. NECK: Supple. No JVD or thyromegaly LUNGS: Respirations even and unlabored. Lungs essentially clear to auscultation bilaterally. HEART: Regular rate and rhythm. S1 and S2 heard. EXTREMITIES: Normal range of motion. No clubbing or cyanosis. Peripheral pulses intact. No lower extremity edema. Right groin soft with no hematoma no isaiah ASSESSMENT: Acute/subacute STEMI Ischemic cardiomyopathy Nicotine dependence Family history of coronary artery disease PLAN: Continue current cardiac medications Continue dual antiplatelet therapy with aspirin and Effient Change beta demetrius to metoprolol succinate 50 mg daily Add Aldactone 25 mg daily Smoking cessation encouraged Anticipate discharge home tomorrow if patient remains stable Further recommendations pending patient's course Patient to follow up outpatient with Dr. Green Nurse practitioner note has been reviewed by physician. Signing provider agrees with the documented findings, assessment, and plan of care. Objective - Vital Signs Vital signs: Vital Signs Temp 97.6 F 03/08/21 08:30 Pulse 96 03/08/21 08:30 Resp 18 03/08/21 08:30 BP 113/68 03/08/21 08:30 Pulse Ox 98 03/08/21 08:30 Intake & Output 03/07/21 03/08/21 03/08/21 18:59 06:59 18:59 Intake Total 120 10 250 Balance 120 10 250 Weight 81.647 kg 82.5 kg Intake: IV 10 10 Invasive Line 2 10 10 Oral 120 240 Other: Voiding Method Urinal Toilet # Voids 3 1 - Labs CBC & Chem 7: 03/08/21 07:59 03/08/21 07:59 Labs: Abnormal Lab Results - Last 24 Hours (Table) 03/08/21 03/08/21 Range/Units 07:59 07:59 MCV 105.7 H (80.0-100.0) fL Chloride 108 H (98-107) mmol/L Carbon Dioxide 20 L (22-30) mmol/L Glucose 110 H (74-99) mg/dL AST 109 H (17-59) U/L ALT 52 H (4-49) U/L
[2021-03-08 16:11] LABS: Chol/HDL Ratio 6.78 Ratio; LDL Cholesterol,Calculated 164.2 mg/dL (0.0-131.0)
[2021-03-08] MEDS: ATORVASTATIN 80 MG TAB PO SCH (20:06)
--- NOTE | 2021-03-09 00:03 | P.PN ---
Subjective Progress Note Date: 03/08/21 Principal diagnosis: Acute ST elevated [place] status post cardiac catheterization and stent placement to RCA Patient is a 46-year-old male with a known history of hypertension presents to ER with complaints of chest pain. Patient states that he has been having chest pain, chest congestion since yesterday and went to primary care physician. While he was waiting at the PCPs office he began having severe pressure-like sensation in the substernal region. Patient felt like a heavy weight on his chest. EMS was called and patient was transferred to ER. He felt nauseated and vomited. EKG in the ER showed sinus rhythm with QRS pattern in the anteroseptal leads. Patient was taken to cardiac catheterization, which showed chronic total occlusion of the RCA which fills by bridging collateral from the left coronary system with occluded LAD by the osteotome. Right and left coronary systems are extremely calcified. Patient underwent successful stenting of the RCA with extremely classified and complex lesion with good angiographic results by the end of the achieving KIMBERLY-3 flow. Left-sided filling pressures were elevated at 35 mmHg. Laboratory data showed WBC 15.1 hemoglobin 17.1 platelets 230 BUN 49 creatinine 0.64 AST 376 ALT 59 alk phos 117 Troponin 34.4 Coronavirus PCR not detected. 03/07/2021 Patient is currently resting in the bed comfortably. No complaints of chest pain or shortness of breath. Patient has been afebrile. No nausea vomiting or abdominal pain or diarrhea. 2D echocardiogram showed ejection fraction 30 to 35%, basal anterior septal and mid anterior septal apical anterior apical lateral apical inferior and apical septal LV wall hypokinesis. Trace MR and trace TR. Patient is being current dual antiplatelet therapy and statins and metoprolol. 03/08/2021 Patient is currently resting in the bed comfortably. Awake alert and aware x3. No complaints of chest pain or shortness of breath. No palpitations. Patient is being current on dual antiplatelet agents. Ejection fraction 30 to 35%. Patient was started on spironolactone today. Continue to monitor another 24 hours and anticipate discharge in next 24 hours. Cardiology is on board. Current medications reviewed. Objective - Vital Signs Vital signs: Vital Signs Temp 97.6 F 03/08/21 08:30 Pulse 96 03/08/21 08:30 Resp 18 03/08/21 08:30 BP 113/68 03/08/21 08:30 Pulse Ox 98 03/08/21 08:30 Intake & Output 03/07/21 03/08/21 03/08/21 18:59 06:59 18:59 Intake Total 120 10 250 Balance 120 10 250 Weight 81.647 kg 82.5 kg Intake: IV 10 10 Invasive Line 2 10 10 Oral 120 240 Other: Voiding Method Urinal Toilet # Voids 3 1 - Exam PHYSICAL EXAMINATION: Patient is lying in the bed comfortably, no acute distress, awake alert and oriented.. HEENT: Normocephalic. Neck is supple. Pupils reactive. Nostrils clear. Oral cavity is moist. Neck reveals no JVD, carotid bruits, or thyromegaly. CHEST EXAMINATION: Trachea is central. Symmetrical expansion. Lung mcconnell clear to auscultation and percussion. CARDIAC: Normal S1, S2 with no gallops. No murmurs ABDOMEN: Soft. Bowel sounds normal. No organomegaly. No abdominal bruits. Extremities: reveal no edema. No clubbing or cyanosis Neurologically awake, alert, oriented x3 with well-coordinated movements. No focal deficits noted Skin: No rash or skin lesions. Psychiatric: Cooperative. Nonsuicidal Musculoskeletal: No joint swelling or deformity. Normal range of motion. - Labs CBC & Chem 7: 03/08/21 07:59 03/08/21 07:59 Labs: Abnormal Lab Results - Last 24 Hours (Table) 03/08/21 03/08/21 Range/Units 07:59 07:59 MCV 105.7 H (80.0-100.0) fL Chloride 108 H (98-107) mmol/L Carbon Dioxide 20 L (22-30) mmol/L Glucose 110 H (74-99) mg/dL AST 109 H (17-59) U/L ALT 52 H (4-49) U/L Assessment and Plan Assessment: Acute ST elevated [place] status post cardiac catheterization and stent placement to RCA Ischemic cardiomyopathy ejection fraction 30 to 35%. 2D echo done on 03/06/2021. Elevated AST and ALT. trending down Hypertension Significant family history of coronary artery disease Currently some day smoker DVT prophylaxis. Plan: Patient is status post cardiac catheterization and stent placement to RCA. Patient will be continued on telemetry monitoring. Was initially started on heparin drip and currently discontinued. Continue with aspirin, Effient and metoprolol and lisinopril. added aldactone today,. Cardiology is on board. Continue to follow closely.
[2021-03-09 03:21] VITALS: RESP 16
[2021-03-09 08:59] LABS: ALT 59 U/L (4-49); AST 66 U/L (17-59); African American GFR (CKD) >90 (>60 ml/min/1.73 sqM); Albumin 3.7 g/dL (3.5-5.0); Alkaline Phosphatase 111 U/L (38-126); Anion Gap 9 mmol/L; Blood Urea Nitrogen 17 mg/dL (9-20); Calcium 8.9 mg/dL (8.4-10.2); Carbon Dioxide 22 mmol/L (22-30); Chloride 106 mmol/L (98-107); Glucose 115 mg/dL (74-99); Non-African American GFR(CKD) >90 (>60 ml/min/1.73 sqM); Potassium 3.9 mmol/L (3.5-5.1); Sodium 137 mmol/L (137-145); Total Bilirubin 0.9 mg/dL (0.2-1.3); Total Protein 6.6 g/dL (6.3-8.2)
[2021-03-09] MEDS: METOPROLOL SUCCINATE (ER) 50 MG TAB.ER.24H PO SCH (09:54)
[2021-03-09] MEDS: ASPIRIN 81 MG PO SCH (09:55)
[2021-03-09] MEDS: SPIRONOLACTONE 25 MG TAB PO SCH (09:55)
[2021-03-09] MEDS: PRASUGREL 10 MG TAB PO SCH (09:55)
[2021-03-09 12:30] VITALS: BP 121/88; PULSE 75; TEMP 98
--- NOTE | 2021-03-09 13:12 | P.PN ---
Subjective Progress Note Date: 03/09/21 HISTORY OF PRESENT ILLNESS: The patient is a 46-year-old gentleman with a past medical history significant for smoking and obesity and significant family history of CAD presented to the emergency department complaining of chest discomfort. He stated that the chest discomfort started 24 hours ago. He described it as a pressure in the middle of the chest without any radiation to the arms or neck or shoulders or back. He felt nauseated and he vomited. Because of chest discomfort get worse he presented to the emergency department where an EKG was performed and showed sinus rhythm with a QS pattern in the anteroseptal leads. Because of the ongoing chest discomfort an emergent heart catheterization was advised. The patient underwent an emergent heart catheterization and that revealed chronic total occlusion of the RCA which fills by bridging collateral from the left co ronary system with occluded LAD by the osteotome. The right and left coronary systems are extremely calcified. The patient underwent successful stenting of the RCA with extremely calcified and complex lesion with a good angiographic results by the end with achieving KIMBERLY-3 flow. He was chest pain-free. His left-sided filling pressure were elevated at 35 mmHg. The procedure was performed from the right groin. 03/07/2021 Patient examined this morning at the bedside. He is status post cardiac catheterization with PCI to the LAD. Patient's right groin is soft with no hematoma noted. Patient reports some mild chest discomfort morning but states it is significantly improved from yesterday. He denies shortness of breath. Echocardiogram completed revealing ejection fraction 30-35%, basal anterior septal, mid anterior septal, apical anterior, apical lateral, apical inferior, and apical septal LV wall hypokinesis, trace mitral regurgitation, and trace tricuspid regurgitation 03/08/2021 Patient examined this morning at the bedside. Patient denies chest pain or pressure. He denies shortness of breath. Patient states he has been up ambulating a little bit in his room. Vital signs are stable. Telemetry reveals sinus mechanism. 03/09/2021 Patient examined this morning at bedside. Patient denies chest pain or pressure. He denies shortness of breath. Patient has been heavily without difficulty. Vital signs are stable. Telemetry reveals sinus mechanism. PHYSICAL EXAM: VITAL SIGNS: Reviewed. GENERAL: Well-developed in no acute distress. NECK: Supple. No JVD or thyromegaly LUNGS: Respirations even and unlabored. Lungs essentially clear to auscultation bilaterally. HEART: Regular rate and rhythm. S1 and S2 heard. EXTREMITIES: Normal range of motion. No clubbing or cyanosis. Peripheral pulses intact. No lower extremity edema. Right groin soft with no hematoma noted ASSESSMENT: Acute/subacute STEMI Ischemic cardiomyopathy Nicotine dependence Family history of coronary artery disease PLAN: Continue current cardiac medications Patient may be discharged home today from a cardiac standpoint He is to follow up on an outpatient basis Nurse practitioner note has been reviewed by physician. Signing provider agrees with the documented findings, assessment, and plan of care. Objective - Vital Signs Vital signs: Vital Signs Temp 98 F 03/09/21 12:00 Pulse 75 03/09/21 12:00 Resp 16 03/09/21 12:00 BP 121/88 03/09/21 12:00 Pulse Ox 98 03/09/21 12:00 Intake & Output 03/08/21 03/09/21 03/09/21 18:59 06:59 18:59 Intake Total 760 260 Output Total 600 300 Balance 160 -40 Weight 101.7 kg Intake: IV 20 Invasive Line 2 20 Oral 740 260 Output: Urine 600 300 Other: Voiding Method Toilet # Voids 1 - Labs CBC & Chem 7: 03/08/21 07:59 03/09/21 07:25 Labs: Abnormal Lab Results - Last 24 Hours (Table) 03/08/21 03/09/21 Range/Units 07:59 07:25 Glucose 115 H (74-99) mg/dL AST 66 H (17-59) U/L ALT 59 H (4-49) U/L Cholesterol 221.00 H (0.00-200.00) mg/dL LDL Cholesterol, Calc 164.2 H (0.0-131.0) mg/dL HDL Cholesterol 32.60 L (40.00-60.00) mg/dL
[2021-03-09] MEDS: ATORVASTATIN 80 MG TAB PO SCH (14:59)
--- NOTE | 2021-03-09 22:05 | P.DS ---
Providers Date of admission: 03/06/21 12:13 Attending physician: Jonh Quinn Consults: 03/06/21 12:13 Consult Physician Stat Consulting Provider: [place] rGeen Consult Reason/Comments: stemi Do you want consulting provider notified?: Yes 03/06/21 13:33 Consult Physician Routine Consulting Provider: [facility] Consult Reason/Comments: Post Interventional patient Do you want consulting provider notified?: Already Contacted Primary care physician: Rafia Oconnell Hospital Course: Diagnoses: Acute ST elevated [place] status post cardiac catheterization and stent placement to RCA Ischemic cardiomyopathy ejection fraction 30 to 35%. 2D echo done on 03/06/2021. Elevated AST and ALT. trending down Hypertension Significant family history of coronary artery disease Obesity with BMI of 34.1 Hospital course: This is a pleasant 46 years old male presents with chest pain and found to have acute ST elevation myocardial infarction. He has been evaluated by c d reactor operator and underwent urgent cardiac cath and PCI to the right coronary artery. Postprocedure patient was doing well, he was working in his room, fully awake and oriented stating he is back to normal. There is any chest pain or dyspnea. No abdominal pain. No change in urine or bowel habits and no fever. Hemodynamically stable. Ejection fraction she is 30-35% Tunnel El[employer] Operator [employer] following the patient closely and he was started on aspirin and Effient, importance of adherence to dual antiplatelet therapy explained to the patient Patient was eager to go home today Patient was cleared For discharge by c d reactor operator Problems and management plan were discussed with the patient and he verbalized understanding and acceptance Patient was found stable and can be discharged home however he needs follow-up as an outpatient. Patient was instructed to follow up with PCP Dr. Oconnell within one week and patient agrees Patient was instructed to follow up with c d reactor operator Dr. Green in one week and he agrees. Patient told me he will call and make his own appointments Physical exam Gen: patient is a AAOx3, no distress CVS: S1-S2, RRR, no murmur Lungs: B/L CTA, no wheezing Abdomen: soft, no distention, no tenderness, positive bowel sounds Extremity: no leg edema or induration Time spent more than 35 minutes Patient Condition at Discharge: Critical Plan - Discharge Summary New Discharge Prescriptions: New Spironolactone [Aldactone] 25 mg PO DAILY #90 tab Aspirin 81 mg PO DAILY #90 tab Atorvastatin [Lipitor] 80 mg PO HS #90 tab Nitroglycerin Sl Tabs [Nitrostat] 0.4 mg SUBLINGUAL Q5M PRN #100 tab PRN Reason: Chest Pain Prasugrel [Effient] 10 mg PO DAILY #90 tab Metoprolol Succinate (ER) [Toprol XL] 50 mg PO DAILY #90 tablet lisinopriL [Zestril] 2.5 mg PO DAILY #90 tab Discontinued Ibuprofen [Motrin] 800 mg PO Q8H PRN PRN Reason: pain Losartan [Cozaar] 25 mg PO DAILY Discharge Medication List Aspirin 81 mg PO DAILY #90 tab 03/08/21 [Rx] Atorvastatin [Lipitor] 80 mg PO HS #90 tab 03/08/21 [Rx] Metoprolol Succinate (ER) [Toprol XL] 50 mg PO DAILY #90 tablet 03/08/21 [Rx] Nitroglycerin Sl Tabs [Nitrostat] 0.4 mg SUBLINGUAL Q5M PRN #100 tab 03/08/21 [Rx] Prasugrel [Effient] 10 mg PO DAILY #90 tab 03/08/21 [Rx] Spironolactone [Aldactone] 25 mg PO DAILY #90 tab 03/08/21 [Rx] lisinopriL [Zestril] 2.5 mg PO DAILY #90 tab 03/08/21 [Rx] Follow up Appointment(s)/Referral(s): [facility],Cardiac [NON-STAFF] - 1 Week Chapincito Green MD [STAFF PHYSICIAN] - 1 Week (March 15, 3:[address] location ) Rafia Oconnell MD [Primary Care Provider] - 1-2 days (call office for appt. time) Patient Instructions/Handouts: *Surgery [facility] - After Heart Catheterization - Utility Arborist Instructions, Left Heart Catheterization (DC), Cardiac Rehabilitation (DC), Procedural Sedation (ED) Discharge Disposition: HOME SELF-CARE
== END 2021-03-09 15:01 | disposition home or self-care (01) | DRG 247 ==
LOC: CATHCVL 11:14 → 2SICU 12:13 → 3SCARD 21:41
PROVIDERS: ADMIT Internal Medicine; ATTEND Internal Medicine
PROC: B2111ZZ Fluoroscopy of Multiple Coronary Arteries using Low Osmolar Contrast (ICD-10-PCS; 2021-03-06)
PROC: 027034Z Dilation of Coronary Artery, One Artery with Drug-eluting Intraluminal Device, Percutaneous Approach (ICD-10-PCS; principal; 2021-03-06 17:55)
PROC: 02C03ZZ Extirpation of Matter from Coronary Artery, One Artery, Percutaneous Approach (ICD-10-PCS; 2021-03-06 17:55)
PROC: 4A023N7 Measurement of Cardiac Sampling and Pressure, Left Heart, Percutaneous Approach (ICD-10-PCS; 2021-03-06 17:55)
DX: I21.09 ST elevation (STEMI) myocardial infarction involving other coronary artery of anterior wall (principal); E66.9 Obesity, unspecified; Z68.34 Body mass index [BMI] 34.0-34.9, adult; F17.200 Nicotine dependence, unspecified, uncomplicated; F41.9 Anxiety disorder, unspecified; I10 Essential (primary) hypertension; I25.10 Atherosclerotic heart disease of native coronary artery without angina pectoris; I25.5 Ischemic cardiomyopathy; Z20.822 Contact with and (suspected) exposure to COVID-19; Z79.899 Other long term (current) drug therapy; Z82.49 Family history of ischemic heart disease and other diseases of the circulatory system
CPT/HCPCS: 71045; 80048; 80053; 80061; 83735; 84484; 85025; 85610; 85730; 87635; 92941; 92973; 93005; 93306; 93458; 96374; 99285

== ENCOUNTER 2022-07-22 14:26 | Observation (INO) | payer MEDICARE, OTHER ==
[2022-07-22] MEDS ORDERED: NITROGLYCERIN OINT 1 INCH/GM PACKET TOPICAL STA (14:30)
--- NOTE | 2022-07-22 14:56 | ED ---
General Adult HPI - General Chief complaint: Chest Pain Stated complaint: Chest Pain Time Seen by Provider: 07/22/22 14:35 Source: patient, EMS, RN notes reviewed, old records reviewed Mode of arrival: EMS Limitations: no limitations - History of Present Illness Initial comments: This is a 47-year-old male presents emergency Department stating he's had heart attack in the past. Patient states about 5 days ago he got lightheaded and she passed out but he did not get seen at that time. States today he was outside working car and he started getting lightheaded he sat down he became very short of breath and had chest pain. Patient states the chest pain lasts approximately one hour EMS was called they came and got him and gave him aspirin in the chest pain had subsided at that time so no nitroglycerin was given. Patient states the pain was very similar to his heart attack pain. Patient states he continues to smoke. Patient denies any recent fever chills or cough per patient denies headache patient denies numbness weakness. Patient denies abdominal pain patient denies nausea vomiting diarrhea. - Related Data Previous Rx's Medication Instructions Recorded Aspirin 81 mg PO DAILY #90 tab 03/08/21 Atorvastatin [Lipitor] 80 mg PO HS #90 tab 03/08/21 Metoprolol Succinate (ER) [Toprol 50 mg PO DAILY #90 tablet 03/08/21 XL] Nitroglycerin Sl Tabs [Nitrostat] 0.4 mg SUBLINGUAL Q5M PRN #100 tab 03/08/21 Prasugrel [Effient] 10 mg PO DAILY #90 tab 03/08/21 Spironolactone [Aldactone] 25 mg PO DAILY #90 tab 03/08/21 lisinopriL [Zestril] 2.5 mg PO DAILY #90 tab 03/08/21 Allergies Allergy/AdvReac Type Severity Reaction Status Date / Time coconut Allergy Rash/Hives Verified 03/06/21 12:12 Review of Systems ROS Statement: Those systems with pertinent positive or pertinent negative responses have been documented in the HPI. ROS Other: All systems not noted in ROS Statement are negative. Past Medical History Past Medical History: Hypertension Additional Past Medical History / Comment(s): herniated discs History of Any Multi-Drug Resistant Organisms: None Reported Additional Past Surgical History / Comment(s): skin graft right hand Past Anesthesia/Blood Transfusion Reactions: No Reported Reaction Past Psychological History: Anxiety Smoking Status: Current some day smoker Past Alcohol Use History: None Reported Past Drug Use History: None Reported General Exam - General Exam Comments Initial Comments: GENERAL: Patient is well-developed and well-nourished. Patient is nontoxic and well- hydrated and is in mild distress. ENT: Neck is soft and supple. No significant lymphadenopathy is noted. Oropharynx is clear. Moist mucous membranes. Neck has full range of motion without eliciting any pain. EYES: The sclera were anicteric and conjunctiva were pink and moist. Extraocular movements were intact and pupils were equal round and reactive to light. Eyelids were unremarkable. PULMONARY: Unlabored respirations. Good breath sounds bilaterally. No audible rales rhonchi or wheezing was noted. CARDIOVASCULAR: There is a regular rate and rhythm without any murmurs gallops or rubs. ABDOMEN: Soft and nontender with normal bowel sounds. SKIN: Skin is clear with no lesions or rashes and otherwise unremarkable. NEUROLOGIC: Patient is alert and oriented x3. Cranial nerves II through XII are grossly intact. Motor and sensory are also intact. Normal speech, volume and content. Symmetrical smile. MUSCULOSKELETAL: Normal extremities with adequate strength and full range of motion. No lower extremity swelling or edema. No calf tenderness. LYMPHATICS: No significant lymphadenopathy is noted PSYCHIATRIC: Normal psychiatric evaluation. 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 Patient's EKG shows no ST segment elevation however there is Q waves anteriorly as well as inferiorly. Was pt. sent in by a medical professional or institution (, PA, UX ENGINEER, urgent care, hospital, or half-way...) When possible be specific @ -[No] Did you speak to anyone other than the patient for history (EMS, parent, family, police, friend...)? What history was obtained from this source @ -[No] Did you review nursing and triage notes (agree or disagree)? Why? @ -[I reviewed and agree with nursing and triage notes] Were old charts reviewed (outside hosp., previous admission, EMS record, old EKG, old radiological studies, urgent care reports/EKG's, half-way records)? Report findings @ -I reviewed prior charts and the laboratory work on this patient Differential Diagnosis (chest pain, altered mental status, abdominal pain women, abdominal pain men, vaginal bleeding, weakness, fever, dyspnea, syncope, headache, dizziness, GI bleed, back pain, seizure, CVA, palpatations, mental health, musculoskeletal)? @ -Differential Chest Pain: Stable Angina, Unstable Angina, STEMI, NSTEMI Aortic Dissection, Pneumothorax, Musculoskeletal, Esophageal Spasm GERD, Cholecystitis, Pancreatitis, Zoster, this is not meant to be an all-inclusive list. EKG interpreted by me (3pts min.). @ -[As above] X-rays interpreted by me (1pt min.). @ -Chest x-ray was interpreted by myself as no acute abnormality CT interpreted by me (1pt min.). @ -[None done] U/S interpreted by me (1pt. min.). @ -[None done] What testing was considered but not performed or refused? (CT, X-rays, U/S, labs)? Why? @ -[None] What meds were considered but not given or refused? Why? @ -[None] Did you discuss the management of the patient with other professionals (professionals i.e. , PA, UX ENGINEER, lab, RT, psych nurse, social contact worker, electric shipyard operator, teacher, hydrological technical officer, manager of case management)? Give summary @ -I spoke with Dr. Khan he agreed to admit the patient admitted the patient wrote admitting orders Was smoking cessation discussed for >3mins.? @ -Yes Was critical care preformed (if so, how long)? @ -[No] Were there social determinants of health that impacted care today? How? (Homelessness, low income, unemployed, alcoholism, drug addiction, transportation, low edu. Level, literacy, decrease access to med. care, shelter, rehab)? @ -[No] Was there de-escalation of care discussed even if they declined (Discuss DNR or withdrawal of care, Hospice)? DNR status @ -[No] What co-morbidities impacted this encounter? (DM, HTN, Smoking, COPD, CAD, Cancer, CVA, ARF, Chemo, Hep., AIDS, mental health diagnosis, sleep apnea, morbid obesity)? @ -Smoking Was patient admitted / discharged? Hospital course, mention meds given and route, prescriptions, significant lab abnormalities, going to OR and other pertinent info. @ -Patient was chest pain-free throughout his ED course. Patient had Nitropaste placed. I spoke with the patient was given hospice agreed to admit the patient admitted the patient I wrote admitting orders and consult cardiology. Patient's chest x-ray was also normal. Undiagnosed new problem with uncertain prognosis? @ -[No] Drug Therapy requiring intensive monitoring for toxicity (Heparin, Nitro, Insulin, Cardizem)? @ -[No] Were any procedures done? @ -[No] Diagnosis/symptom? @ -Chest pain Acute, or Chronic, or Acute on Chronic? @ -Acute Uncomplicated (without systemic symptoms) or Complicated (systemic symptoms)? @ -Complicated Side effects of treatment? @ -[No] Exacerbation, Progression, or Severe Exacerbation? @ -[No] Poses a threat to life or bodily function? How? (Chest pain, USA, DE, pneumonia, PE, COPD, DKA, ARF, appy, cholecystitis, CVA, Diverticulitis, Homicidal, Suicidal, threat to staff... and all critical care pts) @ -Yes this can lead to an DE which could lead to end organ dysfunction - Lab Data Result diagrams: 07/22/22 14:42 Lab Results 07/22/22 Range/Units 14:42 WBC 6.9 (3.8-10.6) k/uL RBC 4.27 L (4.30-5.90) m/uL Hgb 14.1 (13.0-17.5) gm/dL Hct 41.6 (39.0-53.0) % MCV 97.6 (80.0-100.0) fL MCH 32.9 (25.0-35.0) pg MCHC 33.8 (31.0-37.0) g/dL RDW 11.8 (11.5-15.5) % Plt Count 199 (150-450) k/uL MPV 8.1 Neutrophils % 75 % Lymphocytes % 15 % Monocytes % 6 % Eosinophils % 3 % Basophils % 0 % Neutrophils # 5.2 (1.3-7.7) k/uL Lymphocytes # 1.1 (1.0-4.8) k/uL Monocytes # 0.4 (0-1.0) k/uL Eosinophils # 0.2 (0-0.7) k/uL Basophils # 0.0 (0-0.2) k/uL Disposition Clinical Impression: Chest pain Disposition: ADMITTED IP TO THIS HOSP Referrals: Rafia Oconnell MD [Primary Care Provider] - 1-2 days Time of Disposition: 15:13
[2022-07-22 15:05] LABS: Basophils % (A) 0 %; Eosinophils # (A) 0.2 k/uL (0-0.7); Eosinophils % (A) 3 %; HCT 41.6 % (39.0-53.0); HGB 14.1 gm/dL (13.0-17.5); Lymphocytes # (A) 1.1 k/uL (1.0-4.8); Lymphocytes % (A) 15 %; MCH 32.9 pg (25.0-35.0); MCHC 33.8 g/dL (31.0-37.0); MCV 97.6 fL (80.0-100.0); Mean Platelet Volume 8.1; Monocytes # (A) 0.4 k/uL (0-1.0); Monocytes % (A) 6 %; Neutrophils # (A) 5.2 k/uL (1.3-7.7); Neutrophils % (A) 75 %; Platelet Count 199 k/uL (150-450); RBC 4.27 m/uL (4.30-5.90); RDW 11.8 % (11.5-15.5); WBC 6.9 k/uL (3.8-10.6)
[2022-07-22] MEDS ORDERED: NITROGLYCERIN SL TABS 0.4 MG TAB SUBLINGUAL PRN (15:14)
--- NOTE | 2022-07-22 15:16 | XR ---
EXAMINATION TYPE: XR chest 2V DATE OF EXAM: 07/22/2022 3:01 PM COMPARISON: Chest radiographs from 03/06/2021 TECHNIQUE: XR chest 2V Frontal and lateral views of the chest. CLINICAL INDICATION:Male, 47 years old with history of Chest Pain; FINDINGS: Lungs/Pleura: There is no evidence of pleural effusion, focal consolidation, or pneumothorax. Pulmonary vascularity: Unremarkable. Heart/mediastinum: Cardiomediastinal silhouette is unremarkable. Musculoskeletal: No acute osseous pathology. IMPRESSION: No acute cardiopulmonary disease/process.
[2022-07-22 15:19] LABS: Partial Thromboplastin Time 25.2 sec (22.0-30.0); Prothrombin Time 10.2 sec (9.0-12.0)
[2022-07-22 15:32] LABS: ALT 34 U/L (4-49); AST 69 U/L (17-59); African American GFR (CKD) >90 (>60 ml/min/1.73 sqM); Albumin 4.1 g/dL (3.5-5.0); Alkaline Phosphatase 70 U/L (38-126); Anion Gap 12 mmol/L; Blood Urea Nitrogen 19 mg/dL (9-20); Calcium 8.8 mg/dL (8.4-10.2); Carbon Dioxide 22 mmol/L (22-30); Chloride 106 mmol/L (98-107); Glucose 144 mg/dL (74-99); Magnesium 1.8 mg/dL (1.6-2.3); Non-African American GFR(CKD) >90 (>60 ml/min/1.73 sqM); Potassium 3.7 mmol/L (3.5-5.1); Sodium 140 mmol/L (137-145); Total Protein 6.6 g/dL (6.3-8.2)
--- NOTE | 2022-07-22 15:51 | XR ---
EXAMINATION TYPE: XR nasal bone INDICATION: Patient age:Male; 47 years old; Reason for study: nasal pain; COMPARISON: None TECHNIQUE: Nasal bridge was evaluated and three views. FINDINGS: The anterior nasal spine has a normal radiographic appearance as well. The nasal septum projects a midline appearance. Limited evaluation of the paranasal sinuses demonstrates normal aeration. IMPRESSION: No convincing evidence for nasal bone fracture. Consider CT maxillofacial if clinically warranted.
[2022-07-22] MEDS: NITROGLYCERIN OINT 1 INCH/GM PACKET TOPICAL SCH (21:01)
[2022-07-23] MEDS: NITROGLYCERIN OINT 1 INCH/GM PACKET TOPICAL SCH (03:16)
[2022-07-23] MEDS ORDERED: REGADENOSON 0.4 MG/5 ML SYRINGE IV PRN (08:10)
[2022-07-23] MEDS ORDERED: AMINOPHYLLINE 500 MG/20 ML VIAL IV PRN (08:10)
[2022-07-23] MEDS ORDERED: CAFFEINE CITRATE 60 MG/3 ML VIAL IV PRN (08:10)
[2022-07-23] MEDS ORDERED: ASPIRIN 325 MG TAB PO SCH (09:00)
--- NOTE | 2022-07-23 09:24 | P.CRDCN ---
History of Present Illness History of present illness: HISTORY OF PRESENT ILLNESS: This is a 47-year-old male with a past medical history significant for coronary artery disease with previous stenting, nicotine dependence, and previous methamphetamine use. 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 We have been asked to see the patient in consultation for chest pain and syncope. Patient examined at the bedside. Patient states yesterday he woke up and got out of bed. The patient states he was standing in his bedroom and was stretching when he began to feel dizzy and fainted. Patient states he had one other episode of syncope within the last couple weeks. The patient also reports yesterday he was trying to change a tire and became very short of breath. The patient also reports having some chest pressure at that time. At the time of examination this morning, the patient denies chest pain or pressure. He denies shortness of breath. * EKG reveals sinus mechanism with no signs of acute ischemia * Chest xray negative for acute process * Laboratory data: WBC 6.9. Hemoglobin 14.1. Platelet count 199. Sodium 140. Potassium 3.7. BUN 19. Creatinine 0.72. Magnesium 1.8. Troponin negative 3 * Current home cardiac medications include none * Most recent echocardiogram obtained in February 2021 revealing ejection fraction 30-35%, trace MR, trace TR * Cardiac catheterization history: February 2021 in the setting of anterior STEMI with stenting of the proximal LAD. Aspiration thrombectomy from LAD. Patient was also found to have chronic total occlusion of the right coronary artery which fills by bridging collaterals from the left coronary system. Elevated left-sided filling pressures. REVIEW OF SYSTEMS: At the time of my exam: CONSTITUTIONAL: Denies fever or chills. HEENT: Denies blurred vision, vision changes, or eye pain. Denies hemoptysis CARDIOVASCULAR: Denies chest pain. Denies orthopnea. Denies PND. Denies palpitations RESPIRATORY: Denies shortness of breath. GASTROINTESTINAL: Denies abdominal pain. Denies nausea or vomiting. HEMATOLOGIC: Denies bleeding disorders. GENITOURINARY: Denies any blood in urine. SKIN: Denies pruitis. Denies rash. PHYSICAL EXAM: VITAL SIGNS: Reviewed. GENERAL: Well-developed in no acute distress. HEENT: Head is normocephalic. Pupils are equal, round. Sclerae anicteric. Mucous membranes of the mouth are moist. Neck supple. No JVD or thyromegaly LUNGS: Respirations even and unlabored. Lungs essentially clear to auscultation bilaterally. HEART: Regular rate and rhythm. S1 and S2 heard. ABDOMEN: Soft. Nondistended. Nontender. EXTREMITIES: Normal range of motion. No clubbing or cyanosis. Peripheral pulses intact. No lower extremity edema NEUROLOGIC: Awake and alert. Oriented x 3. 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 Ischemic cardiomyopathy, EF 30-35% in 2020 Nicotine dependence Previous methamphetamine use Medication noncompliance PLAN: An acute coronary event has been ruled out Obtain 2D echo to assess cardiac structure and function Add aspirin, Lipitor, losartan, and metoprolol secondary to history of ischemic cardiomyopathy Check lipid panel Importance of medication compliance discussed with patient Smoking cessation recommended Continue telemetry monitoring to assess for any arrhythmias Patient to undergo Lexiscan stress test today Further recommendations pending patient's course Nurse practitioner note has been reviewed by physician. Signing provider agrees with the documented findings, assessment, and plan of care. Past Medical History Past Medical History: Hypertension Additional Past Medical History / Comment(s): herniated discs, cardiac stent 2022 History of Any Multi-Drug Resistant Organisms: None Reported Past Surgical History: Heart Catheterization With Stent Additional Past Surgical History / Comment(s): skin graft right hand Past Anesthesia/Blood Transfusion Reactions: No Reported Reaction Date of Last Stent Placement:: 2022 Past Psychological History: Anxiety Smoking Status: Current some day smoker Past Alcohol Use History: None Reported Past Drug Use History: None Reported Medications and Allergies Home Medications Medication Instructions Recorded Confirmed Type No Known Home Medications 07/22/22 07/22/22 History Allergies Allergy/AdvReac Type Severity Reaction Status Date / Time coconut Allergy Rash/Hives Verified 07/22/22 15:54 Physical Exam Vitals: Vital Signs Temp Pulse Pulse Resp BP BP Pulse Ox 07/23/22 02:41 98.4 F 75 17 103/66 99 07/22/22 20:45 97.4 F L 85 17 117/78 98 07/22/22 17:06 98 18 118/80 97 07/22/22 16:00 104 H 18 109/76 98 07/22/22 14:51 106 H 07/22/22 14:34 98 18 97 Intake and Output 07/22/22 07/23/22 07/23/22 22:59 06:59 14:59 Other: # Voids 1 2 Weight 86.183 kg Results 07/22/22 14:42 07/22/22 14:42 Cardiac Enzymes 07/22/22 07/22/22 07/22/22 Range/Units 14:42 14:42 16:08 AST 69 H (17-59) U/L Troponin I <0.012 <0.012 (0.000-0.034) ng/mL 07/22/22 Range/Units 17:46 AST (17-59) U/L Troponin I 0.013 (0.000-0.034) ng/mL Coagulation 07/22/22 Range/Units 14:42 PT 10.2 (9.0-12.0) sec APTT 25.2 (22.0-30.0) sec CBC 07/22/22 Range/Units 14:42 WBC 6.9 (3.8-10.6) k/uL RBC 4.27 L (4.30-5.90) m/uL Hgb 14.1 (13.0-17.5) gm/dL Hct 41.6 (39.0-53.0) % Plt Count 199 (150-450) k/uL Comprehensive Metabolic Panel 07/22/22 Range/Units 14:42 Sodium 140 (137-145) mmol/L Potassium 3.7 (3.5-5.1) mmol/L Chloride 106 (98-107) mmol/L Carbon Dioxide 22 (22-30) mmol/L BUN 19 (9-20) mg/dL Creatinine 0.72 (0.66-1.25) mg/dL Glucose 144 H (74-99) mg/dL Calcium 8.8 (8.4-10.2) mg/dL AST 69 H (17-59) U/L ALT 34 (4-49) U/L Alkaline Phosphatase 70 (38-126) U/L Total Protein 6.6 (6.3-8.2) g/dL Albumin 4.1 (3.5-5.0) g/dL Current Medications Generic Name Dose Route Start Last Admin Trade Name Freq PRN Reason Stop Dose Admin Aspirin 81 mg 07/23/22 09:00 Aspirin 81 Mg PO DAILY SAUL Atorvastatin Calcium 20 mg 07/23/22 21:00 Atorvastatin 20 Mg Tab PO HS SAUL Metoprolol Tartrate 25 mg 07/23/22 09:00 Metoprolol Tartrate 25 Mg Tab PO BID SAUL Nitroglycerin 0.4 mg 07/22/22 15:14 Nitroglycerin Sl Tabs 0.4 Mg Tab SUBLINGUAL Q5M PRN Chest Pain Intake and Output 07/22/22 07/23/22 07/23/22 22:59 06:59 14:59 Other: # Voids 1 2 Weight 86.183 kg 07/22/22 14:42 07/22/22 14:42
[2022-07-23] MEDS: LOSARTAN 25 MG TAB PO SCH (10:13)
[2022-07-23] MEDS: ASPIRIN 81 MG PO SCH (10:13)
[2022-07-23] MEDS: METOPROLOL TARTRATE 25 MG TAB PO SCH ×2 (10:13→20:30)
[2022-07-23 11:29] LABS: Chol/HDL Ratio 4.44 Ratio; LDL Cholesterol,Calculated 93.2 mg/dL (0.0-131.0)
--- NOTE | 2022-07-23 14:07 | XR ---
EXAMINATION TYPE: XR cervical spine comp DATE OF EXAM: 07/23/2022 COMPARISON: NONE HISTORY: Pain TECHNIQUE: Four views are submitted. FINDINGS: The odontoid is intact. There are no compression deformities. The prevertebral soft tissue structur es are within normal limits. The slight anterolisthesis of C4 on C5 C5 and C6. IMPRESSION: 1. Slight grade 1 anterolisthesis C4 on C5 and C5 and C6 could be physiologic. Correlate with MRI as clinically warranted.
--- NOTE | 2022-07-23 14:09 | NM ---
EXAMINATION TYPE: NM stress lexiscan cardiolite DATE OF EXAM: 07/23/2022 COMPARISON: NONE HISTORY: Chest TECHNIQUE: After the intravenous administration of 9.3 mCi Tc 99m Sestamibi - Cardiolite resting SPE CT images acquired 45 minutes post injection. The patient received 0.4mg Lexiscan, 25.1 mCi Tc 99m Sestamibi - Stress images obtained [address] injection FINDINGS: Review of stress and rest SPECT images demonstrates fixed defect involving the apical and apical infe rior myocardium. Small area of stress-induced reversible ischemia in the apex suspected.. Gated anal ysis shows produce wall motion with an estimated left ventricular ejection fraction of 39 %. IMPRESSION: 1. Sizable area of fixed defect involving the apex of the myocardium with a suspected small area of s tress-induced reversible ischemia. 2. Ejection fraction is only 39% correlate clinically.
[2022-07-23] MEDS ORDERED: ALPRAZolam 0.25 MG TAB PO PRN (14:35)
[2022-07-23] MEDS ORDERED: NITROGLYCERIN SL TABS 0.4 MG TAB SUBLINGUAL PRN (14:35)
[2022-07-23] MEDS ORDERED: ALPRAZolam 0.5 MG TAB PO PRN (14:35)
--- NOTE | 2022-07-23 15:44 | P.HPIM ---
History of Present Illness H&P Date: 07/23/22 This is a 47 year old male with medical history of prior STEMI with cardiac stenting back in 2020, history of nicotine use, hypertension, and herniated discs. There is question of history of polysubstance abuse which patient denies. Patient reports falling about 5 days ago secondary to dizziness and syncopal episode patient did lose consciousness and hit his head. Patient is not seeking medical care at this time. Earlier the day today he was working in his car outside and began feeling lightheaded again at this time. Patient developed Chest pain was very short of breath. Patient sat down and states the chest pain did not resolve an hour. EMS was called and patient did receive aspirin however he was not given nitroglycerin since his chest but very subsided. He reports this is similar to his prior heart attack He does have visible bruising under his right eye with some mild soft tissue swelling which the bruising appears to be in a healing state. Patient since has reported a continued headache left frontal lobe and also reports continued dizziness. Patient also has known cardiomyopathy with prior echocardiogram showing an EF of 30 to 35%. Patient denies any chest pain, any arm pain, jaw pain. Denies any vision changes. Denies any nausea, vomiting, or diarrhea. Patient denies any fever/chills or recent illness. Reports smoking 2 cigars a few cigarettes per day. Denies alcohol use and denies any illicut substance use. He does report that he has been incarcerated since his previous HI and was recently out of half-way 2 weeks ago. Patient on assessment does report he is having some numbness in the right fingers since his fall and on exam he does have some pain and tenderness along the cervical spine and has pain with rotation to the right. Labs are essentially unremarkable patient does have mild elevated AST of 69. Troponin level is negative x 3. Lipid panel is WNL. Patient underwent lexiscan stress test today which reveals an EF of 39% with a sizable area of fixed defect involving the apex of myocardium with a suspected small area of stress induced reversible ischemia. Patient is scheduled to undergo cardiac catheterization. Patient also had cervical spine xray done showing slight grade 1 anterolisthesis with C4 on 5 and C5 on 6. Dr. Quinn is consulted for further recommendations this can most likely be followed up as an outpatient basis. REVIEW OF SYSTEMS: CONSTITUTIONAL: No fever, no malaise, no fatigue. HEENT: No recent visual problems or hearing problems. Denied any sore throat. CARDIOVASCULAR: No chest pain, orthopnea, PND, no palpitations, no syncope. PULMONARY: No shortness of breath, no cough, no hemoptysis. GASTROINTESTINAL: No diarrhea, no nausea, no vomiting, no abdominal pain. NEUROLOGICAL: No headaches, no weakness, no numbness. HEMATOLOGICAL: Denies any bleeding or petechiae. GENITOURINARY: Denies any burning micturition, frequency, or urgency. MUSCULOSKELETAL/RHEUMATOLOGICAL: Denies any joint pain, swelling. Reports right neck pain and pain with range of motion. Reports numbness down the right arm into the right 5th finger. ENDOCRINE: Denies any polyuria or polydipsia. The rest of the 14-point review of systems is negative. PHYSICAL EXAMINATION: GENERAL: The patient is alert and oriented x3, not in any acute distress. Well developed, well nourished. HEENT: Pupils are round and equally reacting to light. EOMI. No scleral icterus. No conjunctival pallor. Normocephalic, atraumatic. No pharyngeal erythema. No t hyromegaly. CARDIOVASCULAR: S1 and S2 present. No murmurs, rubs, or gallops. PULMONARY: Chest is clear to auscultation, no wheezing or crackles. ABDOMEN: Soft, nontender, nondistended, normoactive bowel sounds. No palpable organomegaly. MUSCULOSKELETAL: No joint swelling or deformity. EXTREMITIES: No cyanosis, clubbing, or pedal edema. NEUROLOGICAL: Gross neurological examination did not reveal any focal deficits. Pain and tenderness along the cervical spine with palpation SKIN: No rashes. Healing bruise under the right eye along the Assessment and plan Assessment Dizziness and syncopal episode Chest pain rule out ACS patient has completed Lexiscan showing a reversible ischemia and patient is scheduled to undergo cardiac catheterization Cervical radiculopathy with slight grade 1 anterolisthesis C4 on 5 and C5 on 6 possibly due to the fall History of coronary artery disease and PCI History of ischemic cardiomyopathy with known EF 30-35% Hypertension History of herniated discs Chronic and ongoing nicotine use GI prophylaxis Plan Cardiology following patient is scheduled to undergo cardiac catheterization Echocardiogram pending Orthopedic consultation further recommendations regarding the cervical radiculopathy Patient reports no home medications there is likely noncompliance with his cardiac medications secondary to being incarcerated The impression and plan of care has been dictated by Radha Troy Nurse Practitioner as directed. Dr. Cheyenne MD I have performed a history and physical examination and medical decision making of this patient, discussed the same with the dictator, and agree with the dictators assessment and plan as written, documented as a scribe. Based on total visit time, I have performed more than 50% of this visit. Past Medical History Past Medical History: Hypertension Additional Past Medical History / Comment(s): herniated discs, cardiac stent 2022 History of Any Multi-Drug Resistant Organisms: None Reported Past Surgical History: Heart Catheterization With Stent Additional Past Surgical History / Comment(s): skin graft right hand Past Anesthesia/Blood Transfusion Reactions: No Reported Reaction Date of Last Stent Placement:: 2022 Past Psychological History: Anxiety Smoking Status: Current some day smoker Past Alcohol Use History: None Reported Past Drug Use History: None Reported Medications and Allergies Home Medications Medication Instructions Recorded Confirmed Type No Known Home Medications 07/22/22 07/22/22 History Allergies Allergy/AdvReac Type Severity Reaction Status Date / Time coconut Allergy Rash/Hives Verified 07/22/22 15:54 Physical Exam Vitals: Vital Signs Temp Pulse Pulse Pulse Resp BP BP 07/23/22 07:00 97.6 F 72 16 125/79 07/23/22 02:41 98.4 F 75 17 103/66 07/22/22 20:45 97.4 F L 85 17 117/78 07/22/22 17:06 98 18 118/80 07/22/22 16:00 104 H 18 109/76 07/22/22 14:51 106 H 07/22/22 14:34 98 18 Pulse Ox 07/23/22 07:00 98 07/23/22 02:41 99 07/22/22 20:45 98 07/22/22 17:06 97 07/22/22 16:00 98 07/22/22 14:51 07/22/22 14:34 97 Intake and Output 07/22/22 07/23/22 07/23/22 22:59 06:59 14:59 Other: # Voids 1 2 Weight 86.183 kg Results CBC & Chem 7: 07/22/22 14:42 07/22/22 14:42 Labs: Abnormal Lab Results - Last 24 Hours (Table) 07/22/22 07/22/22 Range/Units 14:42 14:42 RBC 4.27 L (4.30-5.90) m/uL Glucose 144 H (74-99) mg/dL AST 69 H (17-59) U/L Assessment and Plan Time with Patient: Less than 30
[2022-07-23] MEDS ORDERED: ACETAMINOPHEN TAB 325 MG TAB PO PRN (16:56)
[2022-07-23] MEDS ORDERED: ONDANSETRON 4 MG/2 ML VIAL IVP PRN (16:56)
[2022-07-23] MEDS ORDERED: ATORVASTATIN 40 MG TAB PO SCH (21:00)
[2022-07-23] MEDS ORDERED: ATORVASTATIN 20 MG TAB PO SCH (21:00)
[2022-07-23] MEDS: SODIUM CHLORIDE 0.9% 1,000 ML in EMPTY BAG 1 BAG IV SCH (22:44)
[2022-07-24] MEDS ORDERED: ASPIRIN 325 MG TAB PO ONE (05:00)
[2022-07-24] MEDS ORDERED: ATORVASTATIN 80 MG TAB PO ONE (05:00)
[2022-07-24] MEDS ORDERED: HEPARIN SODIUM,PORCINE 10,000 UNIT in SODIUM CHLORIDE 0.9% 1,000 ML IRRIGATION PRN (07:00)
[2022-07-24] MEDS ORDERED: HEPARIN SODIUM,PORCINE 2,500 UNIT in SODIUM CHLORIDE 0.9% 250 ML IRRIGATION PRN (07:00)
[2022-07-24] MEDS ORDERED: PANTOPRAZOLE 40 MG TABLET PO SCH (07:30)
[2022-07-24] MEDS: ASPIRIN 81 MG PO SCH (08:20)
[2022-07-24] MEDS: METOPROLOL TARTRATE 25 MG TAB PO SCH (08:22)
[2022-07-24] MEDS: LOSARTAN 25 MG TAB PO SCH (08:22)
[2022-07-24] MEDS ORDERED: VERAPAMIL 2.5 MG/ML 2 ML AMP ONE (08:48)
[2022-07-24] MEDS ORDERED: HEPARIN SODIUM 1,000 UN/ML (10ML VL) ONE (08:59)
[2022-07-24] MEDS ORDERED: MIDAZOLAM 2 MG/2 ML VIAL IV ONE (09:10)
[2022-07-24] MEDS ORDERED: LIDOCAINE 1% INJ 10MG/ML (5 ML VIAL-PF) SQ ONE (09:11)
[2022-07-24] MEDS ORDERED: VERAPAMIL SYRINGE (5 MG/10 ML) INTRAARTER ONE (09:12)
[2022-07-24] MEDS ORDERED: HEPARIN SODIUM 1,000 UN/ML (10ML VL) IV ONE (09:13)
[2022-07-24] MEDS ORDERED: IV FLUID CONTINUATION 1,000 ML IV ONE (09:14)
[2022-07-24] MEDS ORDERED: SODIUM CHLORIDE 0.9% 1,000 ML IV ONE (09:21)
[2022-07-24] MEDS ORDERED: IOPAMIDOL-370 200ML BTL INJ ONE (09:21)
[2022-07-24] MEDS ORDERED: RX INFO: IV CONTRAST WAS GIVEN 1 EACH MISC MISCELLANE PRN (09:24)
--- NOTE | 2022-07-24 09:28 | P.PCN ---
Date of Procedure: 07/24/22 Operative Findings: CARDIAC CATHETERIZATION PERFORMING PHYSICIAN: Chapincito Green MD, RPVI PROCEDURE PERFORMED: 1. Selective right and left coronary angiogram 2. Left heart catheterization INDICATION: Chest discomfort and this 47-year-old gentleman was known CAD known to have chronic total occlusion of the RCA and stenting of the proximal LAD. He underwent myocardial perfusion imaging stress test and that came in to be abnormal. COMPLICATION: None APPROACH: Right radial artery LEVEL OF SEDATION: Moderate with a sedation length of 10 minutes PROCEDURE DESCRIPTION: After obtaining an informed consent, the patient was brought to cardiac laborer petroleum [employer]. Local anesthesia was performed using lidocaine subcutaneously. The right radial artery was cannulated using Seldinger technique, the guidewire passed easily, following that we advanced a 5-Icelandic sheath dilator assembly, the wire and dilator were removed and sheath was flushed. Following that, 2 mg of verapamil along with 5000 unit heparin were given. Selective right and left coronary angiogram using a 6-Icelandic JR4 and JL 3.5 catheters. Following that we did left heart catheterization using 6-Icelandic pigtail catheter. The procedure was completed there was no complication. SELECTIVE CORONARY ANGIOGRAM: The right coronary artery: Large caliber vessel and a dominant vessel. The RCA is chronically occluded in the midportion and fills by contralateral collateral from the left coronary system. Left main: Has mild disease. Bifurcates into an LCx and LAD The left circumflex: Large caliber vessel nondominant vessel. The LCx appeared to be angiographically normal. Gives rises into a large OM branch which appeared to be angiographically normal as well. The left anterior descending artery: Proximal LAD is a stented and the stent is patent. The mid and distal LAD appears to have mild disease only. The LAD gives rise into a diagonal branch which appeared to be angiographically normal HEMODYNAMICS: The LVEDP was 20 mmHg was no significant gradient across aortic valve CONCLUSION: 1. Chronic total occlusion of the RCA which fills by collateral from the left coronary system. This is a known finding from before 2. Patent stent in the proximal left anterior descending artery POSTPROCEDURE MANAGEMENT: Medical treatment and follow-up with the patient
[2022-07-24] MEDS ORDERED: SODIUM CHLORIDE 0.9% 1,000 ML IV SCH (09:30)
--- NOTE | 2022-07-24 09:37 | CA ---
Transthoracic Echo Report Name: Brent Overton Age: 47 Gender: M : 1975 Exam Date: 07/23/2022 09:36 Exam Location: [facility] Ht (in): 68 Wt (lb): 193 Ordering Physician: Rosemary France Attending/Referring Phys: [id number], Román Reclamation Worker Abner Reyez RDCS Procedure CPT: Indications: CP, LV function, hx of CAD Cardiac Hx: HTN; CAD (1 stent) Technical Quality: Fair Contrast 1: Total Dose (mL): Contrast 2: Total Dose (mL): MEASUREMENTS (Male / Female) Normal Values 2D ECHO LV Diastolic Diameter PLAX 4.7 cm 4.2 - 5.9 / 3.9 - 5.3 cm LV Systolic Diameter PLAX 4.1 cm LV Fractional Shortening PLAX 13.3 % IVS Diastolic Thickness 1.0 cm 0.6 - 1.0 / 0.6 - 0.9 cm IVS Systolic Thickness 1.0 cm LVPW Diastolic Thickness 1.1 cm 0.6 - 1.0 / 0.6 - 0.9 cm LVPW Systolic Thickness 1.0 cm LV Relative Wall Thickness 0.4 RV Internal Dim ED PLAX 3.6 cm LVOT Diameter 2.0 cm Aortic Root Diameter 2.9 cm LA Systolic Diameter LX 2.8 cm 3.0 - 4.0 / 2.7 - 3.8 cm LA Ao Ratio 1.0 LV Diastolic Volume MOD BP 126.3 cm??? 67 - 155 / 56 - 104 cm??? LV Systolic Volume MOD BP 77.7 cm??? 22 - 58 / 19 - 49 cm??? LV Ejection Fraction MOD BP 38.5 % >= 55 % LV Stroke Volume MOD BP 48.6 cm??? LV Diastolic Volume MOD 4C 119.3 cm??? LV Systolic Volume MOD 4C 76.2 cm??? LV Ejection Fraction MOD 4C 36.1 % LV Stroke Volume MOD 4C 43.1 cm??? LV Diastolic Length 4C 8.6 cm LV Systolic Length 4C 7.8 cm LV Diastolic Volume MOD 2C 125.4 cm??? LV Systolic Volume MOD 2C 75.4 cm??? LV Ejection Fraction MOD 2C 39.9 % LV Stroke Volume MOD 2C 50.0 cm??? LV Diastolic Length 2C 9.2 cm LV Systolic Length 2C 8.2 cm M-MODE Aortic Root Diameter MM 3.2 cm LA Systolic Diameter MM 3.3 cm LA Ao Ratio MM 1.0 MV E Point Septal Separation 0.9 cm AV Cusp Separation MM 1.5 cm DOPPLER AV Peak Velocity 120.2 cm/s AV Peak Gradient 5.8 mmHg MV Deceleration [place] 197.1 cm/s??? MR Peak Velocity 166.4 cm/s MR Peak Gradient 11.1 mmHg Mitral E Point Velocity 59.3 cm/s Mitral A Point Velocity 64.2 cm/s Mitral E to A Ratio 0.9 MV Deceleration Time 301.0 ms MV E' Velocity 7.0 cm/s Mitral E to MV E' Ratio 8.5 TR Peak Velocity 185.7 cm/s TR Peak Gradient 13.8 mmHg Right Ventricular Systolic Press 18.8 mmHg PV Peak Velocity 85.8 cm/s PV Peak Gradient 2.9 mmHg FINDINGS Left Ventricle Left ventricular ejection fraction is estimated at 45-50 %. Grade 1 diastolic dysfunction. Hypokinetic septum. Roberts hypokinetic. Right Ventricle Normal right ventricular size and function. Right Atrium Normal right atrial size. Left Atrium Normal left atrial size. Mitral Valve Structurally normal mitral valve. Trace to mild mitral regurgitation. Aortic Valve Trileaflet aortic valve. Tricuspid Valve Trace to mild tricuspid regurgitation. Pulmonic Valve Trace to mild pulmonic regurgitation. Pericardium Normal pericardium. Minimal pericardial effusion (normal variant). Aorta Normal size aortic root and proximal ascending aorta. CONCLUSIONS Technically difficult study for interpretation Mildly impaired LV function with EF between 45-50% Previewed by: Dr. Chapincito Green MD (Electronically Signed) Final Date: 24 July 2022 09:36
--- NOTE | 2022-07-24 09:44 | CA ---
Lexiscan Nuclear Stress Test Report Name: Brent Overton Exam Date: 07/23/2022 12:33 Exam Location: [facility] Ht (in): 68 Wt (lb): 190 BSA: 2.00 Ordering Phys: Rosemary France Referring Phys: Erin, Technologist: Elian Stern Age: 47 Gender: M : 1975 Procedure CPT: Indications: Reflex order-Stress test ICD-10 Codes: Patient History: Medications: SEE LIST Meds past 24 hrs: Pretest Chest Pain: STRESS TEST Lexiscan Protocol Exercise Duration (min:sec): 02:[address] Depressions (mm): Angina Score: Kurtz Score: Resting HR (bpm): 59 Peak HR (bpm): 114 Resting BP (mmHg): 111 / 73 Peak BP (mmHg): 143 / 87 MPHR: 172 Target HR: 146 % MPHR: 66 METS: 1.0 Total Dose: Peak Dose: Atropine: Double Product: 36067 BP Response: Stress Termination: PROTOCOL COMPLETE Stress Symptoms: NO SYMPTOMS Stress Summary: ECG ANALYSIS Resting ECG: Stress ECG: CONCLUSIONS Nondiagnostic stress test Dr. Chapincito Green MD (Electronically Signed) Final Date: 24 July 2022 09:44
[2022-07-24 12:07] VITALS: TEMP 98.1
[2022-07-24] MEDS: SODIUM CHLORIDE 0.9% 1,000 ML in EMPTY BAG 1 BAG IV SCH (12:59)
[2022-07-24 15:18] VITALS: BP 103/68; PULSE 61; RESP 16
--- NOTE | 2022-07-24 23:33 | P.DS ---
Providers Date of admission: 07/22/22 15:48 Attending physician: Juan Khan Consults: 07/22/22 15:14 Consult Physician Urgent Consulting Provider: [facility] Consult Reason/Comments: Chest pain Do you want consulting provider notified?: Yes Primary care physician: Rafia Oconnell Hospital Course: Diagnoses: Dizziness and syncopal episode Chest pain secondary to coronary artery disease and angina, Lexiscan showing a reversible ischemia and cardiac catheterization, occluded RCA with good collateral and patent LAD stent Cervical radiculopathy with slight grade 1 anterolisthesis C4 on 5 and C5 on 6 patient declined orthopedic consult History of coronary artery disease and PCI History of ischemic cardiomyopathy with known EF 30-35% Hypertension History of herniated discs Chronic and ongoing nicotine use GI prophylaxis Hospital course: This is a 47 year old male with medical history of prior STEMI with cardiac stenting back in 2020, history of nicotine use, hypertension, and herniated discs. There is question of history of polysubstance abuse which patient denies. Patient reports falling about 5 days ago secondary to dizziness and syncopal episode patient did lose consciousness and hit his head. Also patient has been complaining of from chest pain on admission. Patient evaluated by public health clinical nurse specialist and has known history of ischemic cardiomyopathy with ejection fraction 30-35% in 2020, however repeat echocardiogram during this admission showing improved ejection fraction 45-50%. Patient has positive stress test showing fixed defect involving the apex of the myocardium with suspected small area of reversible ischemia. Patient underwent cardiac cath showing totally occluded RCA with good collateral from the left artery system, with patent LAD stent. Patient isn't on with noncompliance with medication and importance of adding Crestor medication are explained for him. Patient was started on aspirin 81 mg with the risks of bleeding are explained for him extensively as well as the benefits and he agrees to take his medication upon discharge. Also he is on metoprolol, losartan and statin and other medication, see discharge medication. X-ray of the neck showing draped I anterolisthesis C4 on 5 and C5 on 6, patient also was complaining of from mild neck pain with some numbness in both hands, orthopedic team consulted. Yahir from Dr. abdul came to see the patient, however the patient did not thoughts that there is something wrong in his neck therefore he does not want to see orthopedic team and they consulted the consult. I talked to the patient and risks and benefits are explained for him including but not limited to the risk of stroke, loss of FUNCTION (AND HE VERBALIZED UNDERSTANDING AND STILL DECLINES THE CONSULT.Patient does not want to see orthopedic on the neurological service Today patient is fully awake and oriented, denies dizziness or syncope or presyncope. He denies chest pain to me. No dyspnea. No other complaints. Patient denies any other symptom. Patient agrees to be discharged home today. Patient was cleared for discharge by public health clinical nurse specialist Problems and management plan were discussed with the patient and he verbalized understanding and acceptance Patient was found stable and can be discharged home in guarded prognosis however he needs follow-up as an outpatient. Patient was instructed to follow up with PCP Dr. Oconnell within one week and patient agrees Patient also was instructed to follow up with his public health clinical nurse specialist Dr. Green in one week and he agrees Physical exam Gen: patient is a AAOx3, no distress CVS: S1-S2, RRR, no murmur Lungs: B/L CTA, no wheezing Abdomen: soft, no distention, no tenderness, positive bowel sounds Extremity: no leg edema or induration Time spent more than 35 minutes Plan - Discharge Summary New Discharge Prescriptions: New Aspirin 81 mg PO DAILY #30 tab Losartan [Cozaar] 25 mg PO DAILY #30 tab Atorvastatin [Lipitor] 40 mg PO HS #30 tab Metoprolol Tartrate [Lopressor] 25 mg PO BID #60 tab Nitroglycerin Sl Tabs [Nitrostat] 0.4 mg SUBLINGUAL Q5M PRN #20 tab PRN Reason: Chest Pain Discharge Medication List Aspirin 81 mg PO DAILY #30 tab 07/24/22 [Rx] Atorvastatin [Lipitor] 40 mg PO HS #30 tab 07/24/22 [Rx] Losartan [Cozaar] 25 mg PO DAILY #30 tab 07/24/22 [Rx] Metoprolol Tartrate [Lopressor] 25 mg PO BID #60 tab 07/24/22 [Rx] Nitroglycerin Sl Tabs [Nitrostat] 0.4 mg SUBLINGUAL Q5M PRN #20 tab 07/24/22 [Rx] Follow up Appointment(s)/Referral(s): Davian Abdul DO [Doctor of Osteopathic Medicine] - 1 Week Chapincito Green MD [STAFF PHYSICIAN] - 1 Week Rafia Oconnell MD [Primary Care Provider] - 1-2 days Activity/Diet/Wound Care/Special Instructions: Heart healthy diet activity is restricted till you see your doctor Discharge Disposition: HOME SELF-CARE
== END 2022-07-24 17:56 | disposition home or self-care (01) ==
LOC: EC 14:26 → 6NMEDSUR 15:48
PROVIDERS: ADMIT Internal Medicine; ATTEND Internal Medicine
DX: I25.119 Atherosclerotic heart disease of native coronary artery with unspecified angina pectoris (principal); I25.82 Chronic total occlusion of coronary artery; R42 Dizziness and giddiness; R55 Syncope and collapse; F41.9 Anxiety disorder, unspecified; I10 Essential (primary) hypertension; M43.12 Spondylolisthesis, cervical region; M54.12 Radiculopathy, cervical region; I25.5 Ischemic cardiomyopathy; Z91.148 Patient's other noncompliance with medication regimen for other reason; I25.2 Old myocardial infarction; F17.200 Nicotine dependence, unspecified, uncomplicated; Z79.02 Long term (current) use of antithrombotics/antiplatelets; Z79.82 Long term (current) use of aspirin; Z79.899 Other long term (current) drug therapy
CPT/HCPCS: 92928; 99285; 36415; 94760; 93005; 93017; 93306; 93458; 80061; 80053; 83735; 84484; 85025; 85610; 85730; 83036; 70160; 72050; 71046; 78452; G0378 ×3; C1769; C1894; A9500; J2250; J2001; J1644; J2785

== ENCOUNTER 2022-07-26 15:53 | Emergency (ER) | payer MEDICARE ==
[2022-07-26 16:10] VITALS: RESP 16; TEMP 97.9
--- NOTE | 2022-07-26 16:29 | ED ---
General Adult HPI - General Chief complaint: Psychiatric Symptoms Stated complaint: post op cardiac stent MARLENE Time Seen by Provider: 07/26/22 16:12 Source: patient Mode of arrival: ambulatory Limitations: no limitations - History of Present Illness Initial comments: Dictation was produced using [employer] dictation software. please excuse any grammatical, word or spelling errors. Chief Complaint: 39-year-old male presents emergency department for auditory hallucinations and anxiety History of Present Illness: Is a 39-year-old male has past medical history coronary artery disease or use recently admitted to the hospital for chest pain. Here with cardiac cath which was unremarkable. His discharge stable medical condition. Patient states today that he started to hear some voices and felt anxious. Started to feel short of breath. Denies any pain complaints. States that the voices return of a conversation and he was trying to ignore it. Patient has had auditory hallucinations in the past. Patient has taken psych medications before. He has been in the hospital before for psychiatric reasons. States that he is not living anywhere at the moment and needs to sign up for [facility]. Denies any suicidal or homicidal ideation. The ROS documented in this emergency department record has been reviewed and confirmed by me. Those systems with pertinent positive or negative responses have been documented in the HPI. All other systems are other negative and/or noncontributory. - Related Data Previous Rx's Medication Instructions Recorded Aspirin 81 mg PO DAILY #30 tab 07/24/22 Atorvastatin [Lipitor] 40 mg PO HS #30 tab 07/24/22 Losartan [Cozaar] 25 mg PO DAILY #30 tab 07/24/22 Metoprolol Tartrate [Lopressor] 25 mg PO BID #60 tab 07/24/22 Nitroglycerin Sl Tabs [Nitrostat] 0.4 mg SUBLINGUAL Q5M PRN #20 tab 07/24/22 Allergies Allergy/AdvReac Type Severity Reaction Status Date / Time coconut Allergy Rash/Hives Verified 07/26/22 18:30 Review of Systems ROS Statement: Those systems with pertinent positive or pertinent negative responses have been documented in the HPI. ROS Other: All systems not noted in ROS Statement are negative. Past Medical History Past Medical History: Hypertension Additional Past Medical History / Comment(s): herniated discs, cardiac stent 2022 History of Any Multi-Drug Resistant Organisms: None Reported Past Surgical History: Heart Catheterization With Stent Additional Past Surgical History / Comment(s): skin graft right hand Past Anesthesia/Blood Transfusion Reactions: No Reported Reaction Date of Last Stent Placement:: 2022 Past Psychological History: Anxiety, Depression Smoking Status: Current some day smoker Past Alcohol Use History: None Reported Past Drug Use History: None Reported General Exam - General Exam Comments Initial Comments: PHYSICAL EXAM: General Impression: Alert and oriented x3, not in acute distress HEENT: Normocephalic atraumatic, extra-ocular movements intact, pupils equal and reactive to light bilaterally, mucous membranes moist. Cardiovascular: Heart regular rate and rhythm Chest: Able to complete full sentences, no retractions, no tachypnea Abdomen: abdomen soft, non-tender, non-distended, no organomegaly Musculoskeletal: Pulses present and equal in all extremities, no peripheral edema Motor: no focal deficits noted Neurological: CN II-XII grossly intact, no focal motor or sensory deficits noted Skin: Intact with no visualized rashes Psych: Normal affect and mood Limitations: no limitations Course Vital Signs 07/26/22 16:07 Temperature 97.9 F Pulse Rate 85 Respiratory 16 Rate Blood Pressure 152/90 O2 Sat by Pulse 98 Oximetry Medical Decision Making - Medical Decision Making Was pt. sent in by a medical professional or institution (, PA, CONTROLS DESIGNER, urgent care, hospital, or long term...) When possible be specific @ -No Did you speak to anyone other than the patient for history (EMS, parent, family, police, friend...)? What history was obtained from this source @ -No Did you review nursing and triage notes (agree or disagree)? Why? @ -I reviewed and agree with nursing and triage notes Were old charts reviewed (outside hosp., previous admission, EMS record, old EKG, old radiological studies, urgent care reports/EKG's, long term records)? Report findings @ -Recent admission results reviewed he had a cardiac cath that showed no acute processes. Patient moves discharge. This catheterization procedure was performed 2 days ago. Differential Diagnosis (chest pain, altered mental status, abdominal pain women, abdominal pain men, vaginal bleeding, musculoskeletal, weakness, fever, dyspnea, syncope, headache, dizziness, GI bleed, back pain, seizure, CVA, palpatations, mental health)? @ -Differential Mental Health: Depression, anxiety, bipolar, psychosis, schizophrenia, borderline personality, situational depression, adjustment disorder, behavioral disorder, brain tumor, malingering, substance abuse, encephalopathy, medication reaction, dementia, hypothyroidism, degenerative neurologic disorder, lupus.... This is not meant to be all-inclusive list EKG interpreted by me (3pts min.). @ -None done X-rays interpreted by me (1pt min.). @ -None done CT interpreted by me (1pt min.). @ -None done U/S interpreted by me (1pt. min.). @ -None done What testing was considered but not performed or refused? (CT, X-rays, U/S, labs)? Why? @ -None What meds were considered but not given or refused? Why? @ -None Did you discuss the management of the patient with other professionals (professionals i.e. , PA, CONTROLS DESIGNER, lab, RT, psych nurse, drug abuse social worker, inspector final assembly conveyor line, teacher, juvenile probation officer, case management specialist)? Give summary @ -Case discussed with emergency psych services nurse who cleared patient for discharge to home a alf. Was smoking cessation discussed for >3mins.? @ -No Was critical care preformed (if so, how long)? @ -No Were there social determinants of health that impacted care today? How? (Homelessness, low income, unemployed, alcoholism, drug addiction, transportation, low edu. Level, literacy, decrease access to med. care, senior living, rehab)? @ -Less, recently released from senior living, history of methamphetamine use disorder Was there de-escalation of care discussed even if they declined (Discuss DNR or withdrawal of care, Hospice)? DNR status @ -No What co-morbidities impacted this encounter? (DM, HTN, Smoking, COPD, CAD, Cancer, CVA, ARF, Chemo, Hep., AIDS, mental health diagnosis, sleep apnea, morbid obesity)? @ -None Was patient admitted / discharged? Hospital course, mention meds given and route, prescriptions, significant lab abnormalities, going to OR and other pertinent info. @ -47 y Old male presents to the emergency department for psychiatric complaints. Patient denied any medical complaints. Patient homeless. Patient did have psychiatric evaluation during recent hospitalization. Patient cleared from a psychiatric standpoint. Patient observed in the emergency department for 4 hours he will be discharged to homeless alf. Undiagnosed new problem with uncertain prognosis? @ -No Drug Therapy requiring intensive monitoring for toxicity (Heparin, Nitro, Insulin, Cardizem)? @ -No Were any procedures done? @ -No Diagnosis/symptom? Acute, or Chronic, or Acute on Chronic? Uncomplicated (without systemic symptoms) or Complicated (systemic symptoms)? @ -1. Acute uncomplicated auditory hallucinations Side effects of treatment? @ -No Exacerbation, Progression, or Severe Exacerbation? @ -No Poses a threat to life or bodily function? How? (Chest pain, [place], [place], pneumonia, PE, COPD, DKA, ARF, appy, cholecystitis, CVA, Diverticulitis, Homicidal, Suicidal, threat to staff... and all critical care pts) @ -yes - Lab Data Lab Results 07/26/22 07/26/22 Range/Units 17:36 17:36 Urine Opiates Screen Not Detected (NotDetected) Ur Oxycodone Screen Not Detected (NotDetected) Urine Methadone Screen Not Detected (NotDetected) Ur Propoxyphene Screen Not Detected (NotDetected) Ur Barbiturates Screen Not Detected (NotDetected) U Tricyclic Antidepress Not Detected (NotDetected) Ur Phencyclidine Scrn Not Detected (NotDetected) Ur Amphetamines Screen Not Detected (NotDetected) U Methamphetamines Scrn Not Detected (NotDetected) U Benzodiazepines Scrn Not Detected (NotDetected) Urine Cocaine Screen Not Detected (NotDetected) U Marijuana (THC) Screen Not Detected (NotDetected) Coronavirus (PCR) Not Detected (Not Detectd) Disposition Clinical Impression: Hallucinations Disposition: HOME SELF-CARE Condition: Good Instructions (If sedation given, give patient instructions): Hallucinations (ED) Is patient prescribed a controlled substance at d/c from ED?: No Referrals: Rafia Oconnell MD [Primary Care Provider] - 1-2 days Time of Disposition: 20:11
[2022-07-26 18:09] LABS: Amphetamine Screen,Urine Not Detected (NotDetected); Barbiturate Screen,Urine Not Detected (NotDetected); Benzodiazepines Screen,Urine Not Detected (NotDetected); Cocaine Screen,Urine Not Detected (NotDetected); Methadone Screen, Urine Not Detected (NotDetected); Opiate Screen,Urine Not Detected (NotDetected); Oxycodone Screen, Urine Not Detected (NotDetected); Phencyclidine Screen,Urine Not Detected (NotDetected); Tricyclic Antidepressant,Urine Not Detected (NotDetected); Urn Cannabinoid Scrn Not Detected (NotDetected)
[2022-07-26 20:39] VITALS: BP 110/74; PULSE 86
== END 2022-07-26 20:39 | disposition home or self-care (01) ==
LOC: EC 15:53
DX: R44.0 Auditory hallucinations (principal); I10 Essential (primary) hypertension; F17.200 Nicotine dependence, unspecified, uncomplicated; Z20.822 Contact with and (suspected) exposure to COVID-19; Z91.018 Allergy to other foods
CPT/HCPCS: 80306; 87635; 99285